=== PATIENT | male | born 1965 | race African-American/Black ===

== ENCOUNTER 2025-03-25 19:29 | Inpatient (IN) | payer OTHER ==
[~2025-03-25] VITALS: Ht 170.2 cm; Wt 38.6 kg
--- NOTE | 2025-03-25 19:43 | ED.PDOC ---
Altered Mental Status HPI Comments This is a 62 year old male presenting to the ED with chief complaint of ALOC/hypoglycemia. Patient reports that his blood sugar has been running high and low at home, not being able to keep track of it at all over the past few days. Patient appears to be altered and unable to answer many questions at this time. Patient's friend came in to report that the patient has been in and out of assisted living homes for some time, recently checking himself out of one yesterday. Friend relays that the patient has history of DM and ETOH abuse. Friend states she was going to drive patient to [place] where she lives to have patient get proper care and assistance where she can be near by, however, due to patient's sharp cognitive decline today. she brought the patient into the ED. Friend notes patient has been unable to care for himself for the past 2 years, but he has been able to test his own glucose up until today, which was a cause for alarm for her. Patient had drank orange juice with 4 packets of sugar in the ED along with getting an amp of dextrose prior to IV blowing. Patient is still unable to answer questions at this time. Time Seen by MD: 19:42 Reviewed Notes: Nurses Notes, Medications, Allergies Allergies: Coded Allergies: No Known Drug Allergy (Verified Allergy, Unknown, 03/25/25) Information Source: Patient Mode of Arrival: Wheelchair Severity: Severe Timing: Hours Duration: Since onset Prehospital treatment: None Quality: Decreased Alertness, Confusion Recent: None History of: Diabetes, Hypoglycemia Past Medical History PAST MEDICAL HISTORY: DM Surgical History: Unknown Family History Family History: Reviewed,noncontributory to illness Social History Smoker: Unknown Alcohol: Unknown Drugs: Unknown Lives In: Unknown Unable to Obtain due to: Altered Mental Status All Other Systems: Reviewed and Negative Physical Exam General Appearance: Other (Altered, frail) HEENT: Normal ENT Inspection, Pharynx Normal, TMs Normal Neck: Full Range of Motion, Non-Tender, Normal, Normal Inspection Respiratory: Chest Non-Tender, Lungs Clear, No Accessory Muscle Use, No Respiratory Distress, Normal Breath Sounds Cardiovascular: No Edema, No JVD, No Murmur, No Gallop, Normal Peripheral Pulses, Regular Rate/Rhythm Breast Exam: Deferred Gastrointestinal: No Organomegaly, Non Tender, No Pulsatile Mass, Normal Bowel Sounds, Soft Genitalia: Deferred Pelvic: Deferred Rectal: Deferred Extremities: No calf tenderness, Normal capillary refill, Normal inspection, Normal range of motion, Non-tender, No pedal edema Musculoskeletal : Apperance: Normal Neurologic: Other (Altered) Cerebellar Function: Normal Reflexes: Normal Skin: Dry, Normal Color, Warm Lymphatic: No Adenopathy Was a procedure done? Was a procedure done?: No Differential Diagnosis (ALOC) Differential Diagnosis: Dehydration, Hypoglycemia, DKA, Encephalopathy, Sepsis, Hypoxemia, Heart Failure, Renal Failure X-Ray, Labs, Meds, VS Vital Signs Date Time Temp Pulse Resp B/P (MAP) Pulse Ox O2 Delivery O2 Flow Rate FiO2 03/25/25 20:35 79 13 100 Room Air* 0 21 03/25/25 20:00 79 03/25/25 19:55 66 12 109/66 (80) 99 03/25/25 19:30 87.8 79 13 123/87 (99) 100 87.8 Lab Test 03/25/25 22:12 03/25/25 21:40 03/25/25 21:05 03/25/25 20:35 Range/Units Lactic Acid Level 3.5 *H 0.4-2.0 mmol/L Troponin I High Sensitivity 11 </=54 ng/L POC Glucose 153 H 152 H 70-106 mg/dl Test 03/25/25 20:31 03/25/25 20:29 03/25/25 19:42 03/25/25 19:39 Range/Units White Blood Count 12.1 H 4.4-10.8 10^3/uL Red Blood Count 4.07 L 4.5-5.90 10^6/uL Hemoglobin 12.6 L 13.5-17.5 g/dL Hematocrit 38.3 L 41.0-53.0 % Mean Corpuscular Volume 94.1 80.0-100.0 fL Mean Corpuscular Hemoglobin 30.9 28.0-32.0 pg Mean Corpuscular Hemoglobin Concent 32.8 32.0-36.0 g/dL Red Cell Distribution Width 13.0 11.8-14.3 % Platelet Count 170 140-450 10^3/uL Mean Platelet Volume 8.5 6.9-10.8 fL Neutrophils (%) (Auto) 82.4 H 37.0-80.0 % Lymphocytes (%) (Auto) 12.8 10.0-50.0 % Monocytes (%) (Auto) 4.4 0.0-12.0 % Eosinophils (%) (Auto) 0.0 0.0-7.0 % Basophils (%) (Auto) 0.4 0.0-2.0 % Neutrophils # (Auto) 9.9 H 1.6-8.6 10 ^3/uL Lymphocytes # (Auto) 1.5 0.4-5.4 10 ^3/uL Monocytes # (Auto) 0.5 0-1.3 10 ^3/uL Eosinophils # (Auto) 0 0-0.8 10 ^3/uL Basophils # (Auto) 0.1 0-0.2 10 ^3/uL Nucleated Red Blood Cells 0.0 % Sodium Level 142 136-145 mmol/L Potassium Level 3.2 L 3.5-5.1 mmol/L Chloride Level 104 98-107 mmol/L Carbon Dioxide Level 26 20-31 mmol/L Anion Gap 12 5-15 Blood Urea Nitrogen 10 9-23 mg/dL Creatinine 1.13 0.700-1.30 mg/dL Glomerular Filtration Rate Calc 74 >90 mL/min BUN/Creatinine Ratio 8.8 L 10.0-20.0 Serum Glucose 225 H 74-106 mg/dL Lactic Acid Level 3.6 *H 0.4-2.0 mmol/L Calcium Level 9.7 8.7-10.4 mg/dL Total Bilirubin 0.5 0.2-1.0 mg/dL Aspartate Amino Transferase (AST) 52 H <34 U/L Alanine Aminotransferase (ALT) 142 H 7-40 U/L Alkaline Phosphatase 224 H 46-116 U/L Troponin I High Sensitivity 12 </=54 ng/L Total Protein 6.5 5.7-8.2 g/dL Albumin 4.1 3.2-4.8 g/dL Urine Color Yellow Yellow Urine Clarity Clear Clear Urine pH 5.5 5.0-9.0 Urine Specific [place] 1.015 1.001-1.035 Urine Protein Trace H Negative Urine Ketones Negative Negative Urine Blood Trace H Negative /uL Urine Nitrite Negative Negative Urine Bilirubin Negative Negative Urine Urobilinogen Normal Negative mg/dL Urine Leukocyte Esterase 1+ Negative /uL Urine RBC 2 0 - 3 /hpf Urine Microscopic WBC 3 0-3 /HPF Urine Squamous Epithelial Cells Few <5 /hpf Urine Bacteria None seen None Seen /hpf Urine Glucose 3+ H Normal mg/dL Urine Opiates Screen Neg NEGATIVE Urine Fentanyl Screen Neg NEGATIVE Urine Barbiturates Screen Neg NEGATIVE Urine Phencyclidine Screen Neg NEGATIVE Urine Amphetamines Screen Neg NEGATIVE Urine Benzodiazepines Screen Neg NEGATIVE Urine Cocaine Screen Neg NEGATIVE Urine Cannabinoids Screen Pos NEGATIVE POC Glucose 18 *L 18 *L 70-106 mg/dl Current Medications Medications (Trade) Dose Ordered Sig/Paulette Route Start Time Stop Time Status Last Admin Sodium Chloride 1,000 ml @ 1,000 mls/hr Q1H ONCE IV 03/25/25 20:45 03/25/25 21:44 DC 03/25/25 20:42 Dextrose 50 ml ONCE ONCE IV 03/25/25 19:45 03/25/25 20:45 DC 03/25/25 19:45 Vancomycin HCl 200 ml @ 200 mls/hr ONCE ONCE IV 03/25/25 23:00 03/25/25 23:59 03/25/25 22:53 Ceftriaxone Sodium 50 ml @ 100 mls/hr ONCE ONCE IV 03/25/25 22:45 03/25/25 23:14 03/25/25 22:23 X-Ray, Labs, Meds, VS Comment PATIENT WILL BE ADMITTED FOR HYPOGLYCEMIC EVENT PATIENT HAS A ELEVATED LACTIC ACID PATIENT ALSO HAS HYPOKALEMIA CONCERNS OF UROSEPSIS, PATIENT IS STARTED ON VANCOMYCIN AND ROCEPHIN Time of 1ST Reevaluation: 20:41 Reevaluation 1ST: Unchanged Patient Education/Counseling: Diagnosis, Treatment Family Education/Counseling: No Family Present SEPSIS Sepsis Screen Physician Orders Chest Portable (03/25/25 20:33) Blood Glucose Q2h (03/25/25 20:33) Insert Costa Catheter QSHIFT (03/25/25 20:42) Bear Hugger For Temp <94.5f (03/25/25 20:42) Blood Culture (03/25/25 22:30) Vancomycin 1gm/200ml Pm (03/25/25 23:00) Ceftriaxone 1gm/50ml D5w (Rocephin) (03/25/25 22:45) Vital Signs Date Time Temp Pulse Resp B/P (MAP) Pulse Ox O2 Delivery O2 Flow Rate FiO2 03/25/25 20:35 79 13 100 Room Air* 0 21 03/25/25 20:00 79 03/25/25 19:55 66 12 109/66 (80) 99 03/25/25 19:30 87.8 79 13 123/87 (99) 100 87.8 Laboratory Tests Test 03/25/25 20:31 03/25/25 22:12 Lactic Acid Level 3.6 mmol/L (0.4-2.0) *H 3.5 mmol/L (0.4-2.0) *H White Blood Count 12.1 10^3/uL (4.4-10.8) H Medications Medications Dose Ordered Sig/Paulette Route Start Time Stop Time Status Last Admin Dose Admin Ceftriaxone Sodium 50 ml @ 100 mls/hr ONCE ONCE IV 03/25/25 22:45 03/25/25 23:14 03/25/25 22:23 Dextrose 50 ml ONCE ONCE IV 03/25/25 19:45 03/25/25 20:45 DC 03/25/25 19:45 Sodium Chloride 1,000 ml @ 1,000 mls/hr Q1H ONCE IV 03/25/25 20:45 03/25/25 21:44 DC 03/25/25 20:42 Vancomycin HCl 200 ml @ 200 mls/hr ONCE ONCE IV 03/25/25 23:00 03/25/25 23:59 03/25/25 22:53 Departure 1 Departure Time of Disposition: 23:18 Impression: Primary Impression: Urinary tract infection Qualified Codes: N30.00 - Acute cystitis without hematuria Additional Impressions: Elevated lactic acid level Hypoglycemic event due to diabetes Metabolic encephalopathy Disposition: ADMITTED INPATIENT Condition: Guarded Critical Care Note Critical Care Time?: Yes Stability Stability form required: No Heart Score Heart Score: Heart Score Response (Comments) Value History N/A 0 EKG N/A 0 Age N/A 0 Risk Factors N/A 0 Troponin N/A 0 Total 0 I personally scribed for DAVEY MARESP ([email or web address]) on 03/25/25 at 19:43. Electronically submitted by Kevin Ramirez ([email or web address]). I personally scribed for DAVEY MARESP ([email or web address]) on 03/25/25 at 20:05. Electronically submitted by Kevin Ramirez ([email or web address]). DAVEY MARESP Mar 25, 2025 19:43
[2025-03-25] MEDS: DEXTROSE 50% SYRINGE 50 ML IV ONE (19:44)
[2025-03-25] MEDS: DEXTROSE (50%) 50ML SYRG IV ONE (19:45)
[2025-03-25 20:35] VITALS: PULSE 79; RESP 13; O2SAT 100
[2025-03-25 20:38] LABS: Urine Bacteria None Seen /hpf (None Seen)
[2025-03-25] MEDS: SODIUM CHLORIDE 0.9% 1,000 ML IV ONE (20:42)
[2025-03-25 20:44] LABS: Urine Blood TRACE /uL (Negative); Urine Clarity Clear (Clear); Urine Color Yellow (Yellow); Urine Protein, UAD TRACE (Negative); Urine Specific Gravity 1.015 (1.001-1.035); Urine Squamous Epithelial Cell FEW /hpf (<5); Urine Urobilinogen Normal (Negative); Urine WBC 3 /HPF (0-3); Urine pH 5.5 (5.0-9.0)
[2025-03-25 21:01] LABS: Basophils # (auto) 0.1 10 ^3/uL (0-0.2); Basophils % (auto) 0.4 % (0.0-2.0); Eosinophils # (auto) 0 10 ^3/uL (0-0.8); Hematocrit 38.3 % (41.0-53.0); Hemoglobin 12.6 g/dL (13.5-17.5); Lymphocytes # (auto) 1.5 10 ^3/uL (0.4-5.4); Lymphocytes % (auto) 12.8 % (10.0-50.0); Mean Corpuscular Hemoglobin 30.9 pg (28.0-32.0); Mean Corpuscular Hgb Conc. 32.8 g/dL (32.0-36.0); Mean Corpuscular Volume 94.1 fL (80.0-100.0); Monocytes # (auto) 0.5 10 ^3/uL (0-1.3); Monocytes % (auto) 4.4 % (0.0-12.0); Neutrophils # (auto) 9.9 10 ^3/uL (1.6-8.6); Neutrophils % (auto) 82.4 % (37.0-80.0); Platelet Count (auto) 170 10^3/uL (140-450); Red Blood Cells 4.07 10^6/uL (4.5-5.90); White Blood Cell 12.1 10^3/uL (4.4-10.8)
[2025-03-25 21:10] LABS: Amphetamine Screen, Urine Neg (NEGATIVE)
[2025-03-25 21:19] LABS: Albumin 4.1 g/dL (3.2-4.8); Anion Gap 12 (5-15); BUN/Creatinine Ratio 8.8 (10.0-20.0); Bilirubin, Total 0.5 mg/dL (0.2-1.0); Blood Urea Nitrogen 10 mg/dL (9-23); Calcium 9.7 mg/dL (8.7-10.4); Carbon Dioxide 26 mmol/L (20-31); Chloride 104 mmol/L (98-107); Sodium 142 mmol/L (136-145); Total Protein 6.5 g/dL (5.7-8.2)
--- NOTE | 2025-03-25 21:20 | DVH ---
CHEST RADIOGRAPH Indication: cp Technique: Single frontal view of the chest was obtained Comparison: None FINDINGS: Lines and Tubes: AED pads over the left chest Lungs: No focal consolidation. Pleura: No effusion. No pneumothorax. If pneumoperitoneum is of clinical concern recommend CT abdomen and pelvis. Cardiomediastinal contours: Unremarkable Bones: No acute osseous abnormality. IMPRESSION: 1. No acute cardiopulmonary disease.
[2025-03-25 21:39] LABS: Barbiturate Scree,Urine Neg (NEGATIVE); Benzodiazephine Screen, Urine Neg (NEGATIVE); Cannabinoid Screen, Urine Pos (NEGATIVE); Cocaine Screen, Urine Neg (NEGATIVE); Opiate Scree,Urine Neg (NEGATIVE); Phencyclidine Screen, Urine Neg (NEGATIVE)
[2025-03-25 21:39] LABS: Alanine Aminotransferase 142 U/L (7-40); Alkaline Phosphatase 224 U/L (46-116); Aspartate Aminotransferase 52 U/L (<34); Glucose 225 mg/dL (74-106); Potassium 3.2 mmol/L (3.5-5.1)
[2025-03-25 21:47] LABS: Lactic Acid w/Reflex 3.6 mmol/L (0.4-2.0)
[2025-03-25] MEDS: cefTRIAXone 1GM/50ML D5W 50 ML IV ONE (22:23)
[2025-03-25] MEDS: VANCOMYCIN 1GM/200ML PM 200 ML IV ONE (22:53)
[2025-03-25] MEDS: D5W/SOD CHL 0.45%/KCL 40MEQ 1,000 ML IV ONE (23:30)
[2025-03-26] MEDS ORDERED: ONDANSETRON HCL 4 MG/2 ML VIAL IV PRN
[2025-03-26] MEDS ORDERED: ACETAMINOPHEN 325 MG TAB PO PRN
[2025-03-26] MEDS: InsuLIN REG 1unit/0.01ml Soln (100units/ml) SC SCH
[2025-03-26] MEDS ORDERED: D5W/SOD CHL 0.45% 1,000 ML IV ONE
[2025-03-26] MEDS ORDERED: DEXTROSE (50%) 50ML SYRG IV PRN
[2025-03-26] MEDS: ACCU-CHEK COMFORT CURVE STRIP VI SCH (00:08)
--- NOTE | 2025-03-26 00:45 | DVHHP2 ---
History of Present Illness Reason for Visit: Altered mental status History of Present Illness 62-year-old male presents for evaluation of altered mental status. Patient was noted to be progressively more confused by his friend. He was brought in for evaluation. Blood sugar on arrival was 18. Patient is currently alert oriented x3. No unilateral weakness, headache or blurred vision. No abdominal pain. Past Medical History Diabetes mellitus Past Surgical History None Family History Noncontributory Smoke: No ALCOHOL: none Drugs: None Review of Systems Review of Systems Review of systems are limited due to the patient's altered mental status. Allergies: Coded Allergies: No Known Drug Allergy (Verified Allergy, Unknown, 03/25/25) Medications Current Medications Medications Dose Ordered Sig/Paulette Route Start Time Stop Time Status Last Admin Dose Admin Ceftriaxone Sodium 50 ml @ 100 mls/hr DAILY@09 IV 03/27/25 09:00 Diagnostic Test (Pha) 1 strip IQ4HR 03/26/25 00:00 03/26/25 00:08 1 STRIP Insulin Human Regular IQ4HR SC 03/26/25 00:00 Dextrose 50 ml UD PRN IV 03/26/25 00:00 Ondansetron HCl 4 mg Q4HP PRN IV 03/26/25 00:00 Acetaminophen 650 mg Q6HP PRN PO 03/26/25 00:00 Exam Vital Signs Vital Signs Date Time Temp Pulse Resp B/P (MAP) Pulse Ox O2 Delivery O2 Flow Rate FiO2 03/25/25 23:00 94 11 99/67 (78) 100 03/25/25 22:00 91.6 91.6 03/25/25 20:35 Room Air* 0 21 Exam Gen: 62-year-old male in mild distress, cachectic Skin: Warm, dry, normal color and texture, no rash. HEENT: Normocephalic atraumatic, mucous membranes moist and pink. Neck: Cervical and supraclavicular nodes normal without enlargement, trachea is midline, thyroid gland is normal without masses. Pulmonary: Clear to auscultation and percussion bilaterally. Cardiac: Regular rate and rhythm. No murmur Abdomen: Soft, nontender, nondistended, bowel sounds present all 4 quadrants, no guarding, no rigidity, no organomegaly. Extremities: No cyanosis, clubbing, no edema Neuro: Cranial nerves II through XII grossly intact, normal affect and speech, no focal motor deficits. Labs/Xrays ORDERING PHYSICIAN: DAVEY MARES PROCEDURE(s): CXRP - CHEST PORTABLE REASON: cp ORDER NUMBER(s): [id number], ACCESSION NUMBER(s): [id number] CHEST RADIOGRAPH Indication: cp Technique: Single frontal view of the chest was obtained Comparison: None FINDINGS: Lines and Tubes: AED pads over the left chest Lungs: No focal consolidation. Pleura: No effusion. No pneumothorax. If pneumoperitoneum is of clinical concern recommend CT abdomen and pelvis. Cardiomediastinal contours: Unremarkable Bones: No acute osseous abnormality. IMPRESSION: 1. No acute cardiopulmonary disease. Labs Test 03/25/25 22:12 03/25/25 21:40 03/25/25 21:05 03/25/25 20:31 Range/Units Lactic Acid Level 3.5 *H 0.4-2.0 mmol/L Troponin I High Sensitivity 11 </=54 ng/L POC Glucose 153 H 70-106 mg/dl White Blood Count 12.1 H 4.4-10.8 10^3/uL Red Blood Count 4.07 L 4.5-5.90 10^6/uL Hemoglobin 12.6 L 13.5-17.5 g/dL Hematocrit 38.3 L 41.0-53.0 % Mean Corpuscular Volume 94.1 80.0-100.0 fL Mean Corpuscular Hemoglobin 30.9 28.0-32.0 pg Mean Corpuscular Hemoglobin Concent 32.8 32.0-36.0 g/dL Red Cell Distribution Width 13.0 11.8-14.3 % Platelet Count 170 140-450 10^3/uL Mean Platelet Volume 8.5 6.9-10.8 fL Neutrophils (%) (Auto) 82.4 H 37.0-80.0 % Lymphocytes (%) (Auto) 12.8 10.0-50.0 % Monocytes (%) (Auto) 4.4 0.0-12.0 % Eosinophils (%) (Auto) 0.0 0.0-7.0 % Basophils (%) (Auto) 0.4 0.0-2.0 % Neutrophils # (Auto) 9.9 H 1.6-8.6 10 ^3/uL Lymphocytes # (Auto) 1.5 0.4-5.4 10 ^3/uL Monocytes # (Auto) 0.5 0-1.3 10 ^3/uL Eosinophils # (Auto) 0 0-0.8 10 ^3/uL Basophils # (Auto) 0.1 0-0.2 10 ^3/uL Nucleated Red Blood Cells 0.0 % Sodium Level 142 136-145 mmol/L Potassium Level 3.2 L 3.5-5.1 mmol/L Chloride Level 104 98-107 mmol/L Carbon Dioxide Level 26 20-31 mmol/L Anion Gap 12 5-15 Blood Urea Nitrogen 10 9-23 mg/dL Creatinine 1.13 0.700-1.30 mg/dL Glomerular Filtration Rate Calc 74 >90 mL/min BUN/Creatinine Ratio 8.8 L 10.0-20.0 Serum Glucose 225 H 74-106 mg/dL Calcium Level 9.7 8.7-10.4 mg/dL Total Bilirubin 0.5 0.2-1.0 mg/dL Aspartate Amino Transferase (AST) 52 H <34 U/L Alanine Aminotransferase (ALT) 142 H 7-40 U/L Alkaline Phosphatase 224 H 46-116 U/L Total Protein 6.5 5.7-8.2 g/dL Albumin 4.1 3.2-4.8 g/dL Test 03/25/25 20:29 Range/Units Urine Color Yellow Yellow Urine Clarity Clear Clear Urine pH 5.5 5.0-9.0 Urine Specific [place] 1.015 1.001-1.035 Urine Protein Trace H Negative Urine Ketones Negative Negative Urine Blood Trace H Negative /uL Urine Nitrite Negative Negative Urine Bilirubin Negative Negative Urine Urobilinogen Normal Negative mg/dL Urine Leukocyte Esterase 1+ Negative /uL Urine RBC 2 0 - 3 /hpf Urine Microscopic WBC 3 0-3 /HPF Urine Squamous Epithelial Cells Few <5 /hpf Urine Bacteria None seen None Seen /hpf Urine Glucose 3+ H Normal mg/dL Urine Opiates Screen Neg NEGATIVE Urine Fentanyl Screen Neg NEGATIVE Urine Barbiturates Screen Neg NEGATIVE Urine Phencyclidine Screen Neg NEGATIVE Urine Amphetamines Screen Neg NEGATIVE Urine Benzodiazepines Screen Neg NEGATIVE Urine Cocaine Screen Neg NEGATIVE Urine Cannabinoids Screen Pos NEGATIVE Assessment/Plan Assessment/Plan Assessment Metabolic encephalopathy Hypoglycemia Urinary tract infection Early sepsis secondary to the above Failure to thrive Plan Admit the patient to Med surge to the hospitalist Maintenance IV fluids Rocephin Replete electrolytes Continue treatment per orders. Plan discussed with: Patient My Orders Orders - JILLIAN MICHELLE Procedure Category Date Status Time Urine Bacterial DOROTEO 03/25/25 In Process Culture 23:54 Basic Metabolic Panel LAB 03/26/25 Logged 04:00 Glucose Blood PHA 03/26/25 In Process (Accu-Chek Comfort 00:00 Insulin R (Human) PHA 03/26/25 In Process (Insulin R) 00:00 Dextrose 50% Syringe PHA 03/26/25 In Process 00:00 Admit ADMIT 03/25/25 Transmitted 23:54 Ondansetron Hcl PHA 03/26/25 In Process (Zofran) 00:00 Complete Blood Count LAB 03/26/25 Logged 04:00 Cardiac DIET 03/26/25 Transmitted Diet-2gna,Lofat,Lochol Breakfast Condition: Stable ALEJANDRA 03/25/25 In Process 23:54 Acetaminophen Tablet PHA 03/26/25 In Process (Tylenol Tablet) 00:00 Bedrest With Bathroom ALEJANDRA 03/25/25 In Process Privileg 23:54 Ceftriaxone 1gm/50ml PHA 03/27/25 In Process D5w (Rocephin) 09:00 Date of Service: Mar 25, 2025 Billing Provider: JILLIAN MICHELLE Common Visit Codes: [id number] INP/OBS CARE (HIGH) JILLIAN MICHELLE Mar 26, 2025 00:45
[2025-03-26 04:00] VITALS: BP 104/68; TEMP 97.7
[2025-03-26] MEDS: HALOPERIDOL LACTATE 5 MG/ML INJ VIAL ONE (05:42)
[2025-03-26] MEDS: LORazepam 2MG/ML-1ML VIAL ONE (05:43)
[2025-03-26] MEDS: diphenhdrAMINE HCL 50 MG/1 ML VL ONE (05:43)
[2025-03-26] MEDS: LORazepam 2MG/ML-1ML VIAL IM ONE (06:21)
[2025-03-26] MEDS: diphenhdrAMINE HCL 50 MG/1 ML VL IM ONE (06:21)
[2025-03-26] MEDS: HALOPERIDOL LACTATE 5 MG/ML INJ VIAL IM ONE (06:22)
[2025-03-26 08:30] VITALS: PULSE 68; RESP 14; O2SAT 100
[2025-03-26 17:00] VITALS: PULSE 64; RESP 12; O2SAT 100
[2025-03-26 18:42] LABS: Basophils # (auto) 0 10 ^3/uL (0-0.2); Basophils % (auto) 0.3 % (0.0-2.0); Eosinophils # (auto) 0 10 ^3/uL (0-0.8); Eosinophils % (auto) 0.1 % (0.0-7.0); Hematocrit 36.5 % (41.0-53.0); Hemoglobin 12.1 g/dL (13.5-17.5); Mean Corpuscular Hemoglobin 31.3 pg (28.0-32.0); Mean Corpuscular Volume 94.7 fL (80.0-100.0); Monocytes # (auto) 0.5 10 ^3/uL (0-1.3); Monocytes % (auto) 4.2 % (0.0-12.0); Neutrophils # (auto) 9.2 10 ^3/uL (1.6-8.6); Neutrophils % (auto) 86.4 % (37.0-80.0); Nucleated Red Blood Cells % 0.1 %; Platelet Count (auto) 141 10^3/uL (140-450); Red Blood Cells 3.85 10^6/uL (4.5-5.90); Red Cell Distribution Width 12.8 % (11.8-14.3); White Blood Cell 10.6 10^3/uL (4.4-10.8)
[2025-03-26 18:49] LABS: Potassium 4.7 mmol/L (3.5-5.1); Sodium 141 mmol/L (136-145)
[2025-03-26 18:50] LABS: Anion Gap 9 (5-15); Carbon Dioxide 25 mmol/L (20-31)
[2025-03-26 18:51] LABS: Calcium 9.3 mg/dL (8.7-10.4)
[2025-03-26 18:55] LABS: BUN/Creatinine Ratio 12.7 (10.0-20.0); Blood Urea Nitrogen 13 mg/dL (9-23)
[2025-03-26 18:57] LABS: Chloride 107 mmol/L (98-107); Glucose 263 mg/dL (74-106)
[2025-03-27] MEDS ORDERED: AMLO1TAB23 PO (07:11)
[2025-03-27] MEDS ORDERED: PANC1CAP53 PO (07:11)
[2025-03-27] MEDS ORDERED: cefTRIAXone 1GM/50ML D5W 50 ML IV SCH (09:00)
== END 2025-03-26 20:30 | disposition left against medical advice (07) | DRG 720 ==
LOC: ER 19:35 → OVERFLOW 23:54 → EDBD 23:54 → OVERFLOW 03-26 20:00
PROVIDERS: ADMIT Internal Medicine; ATTEND Internal Medicine
DX: A41.9 Sepsis, unspecified organism (principal); G93.41 Metabolic encephalopathy; E11.649 Type 2 diabetes mellitus with hypoglycemia without coma; R62.7 Adult failure to thrive; N39.0 Urinary tract infection, site not specified; Z53.29 Procedure and treatment not carried out because of patient's decision for other reasons; Z68.1 Body mass index [BMI] 19.9 or less, adult
CPT/HCPCS: 36415; 71045; 80048; 80053; 80307; 81001; 82962; 83605; 84484; 85025; 87040; 87086; 87088; 87186; 96361; 96365; 96375; G0378

== ENCOUNTER 2025-03-26 23:56 | Inpatient (IN) | payer OTHER ==
[~2025-03-26] VITALS: Ht 172.7 cm; Wt 46.3 kg
[2025-03-27 02:09] LABS: Basophils # (auto) 0 10 ^3/uL (0-0.2); Basophils % (auto) 0.1 % (0.0-2.0); Eosinophils # (auto) 0 10 ^3/uL (0-0.8); Eosinophils % (auto) 0.2 % (0.0-7.0); Hematocrit 34.6 % (41.0-53.0); Hemoglobin 11.5 g/dL (13.5-17.5); Lymphocytes # (auto) 0.8 10 ^3/uL (0.4-5.4); Lymphocytes % (auto) 8.3 % (10.0-50.0); Mean Corpuscular Hemoglobin 31.4 pg (28.0-32.0); Mean Corpuscular Hgb Conc. 33.2 g/dL (32.0-36.0); Mean Corpuscular Volume 94.5 fL (80.0-100.0); Monocytes # (auto) 0.4 10 ^3/uL (0-1.3); Monocytes % (auto) 3.6 % (0.0-12.0); Neutrophils # (auto) 8.8 10 ^3/uL (1.6-8.6); Neutrophils % (auto) 87.8 % (37.0-80.0); Platelet Count (auto) 133 10^3/uL (140-450); Red Blood Cells 3.66 10^6/uL (4.5-5.90); Red Cell Distribution Width 13.4 % (11.8-14.3)
[2025-03-27 02:17] LABS: Chloride 103 mmol/L (98-107); Potassium 3.7 mmol/L (3.5-5.1); Sodium 138 mmol/L (136-145)
[2025-03-27 02:18] LABS: Anion Gap 11 (5-15); Carbon Dioxide 24 mmol/L (20-31)
[2025-03-27 02:23] LABS: BUN/Creatinine Ratio 10.8 (10.0-20.0); Blood Urea Nitrogen 13 mg/dL (9-23)
[2025-03-27 02:26] LABS: Glucose 475 mg/dL (74-106)
--- NOTE | 2025-03-27 02:55 | ED.PDOC ---
History of Present Illness HPI Comments 59 y/o M returns to the ED for c/c diarrhea. Patient reports on still having same diarrhea that has been ongoing for several months. No abdominal pain, urinary symptoms, nausea, vomiting, or further associated symptoms reported. Chief Complaint: Diarrhea Time Seen by MD: 01:30 Reviewed Notes: Nurses Notes, Medications, Allergies Allergies: Coded Allergies: No Known Drug Allergy (Verified Allergy, Unknown, 03/25/25) Home Meds Active Scripts Naproxen (NAPROSYN TABLET) 500 Mg Tb, 1 TAB PO BID for 10 Days, #20 TAB 1 Refill Prov:ISAMAR CARRION DO 03/30/25 Azithromycin (Azithromycin) 250 Mg Tab, 250 MG PO DAILY MDD 500 for 5 Days, #6 TAB 0 Refills 2 TABLETS ORALLY ON DAY ONE, THEN 1 TABLET ORALLY DAILY FOR 4 DAYS Prov:ISAMAR CARRION DO 03/30/25 Reported Medications Amlodipine Besylate (Amlodipine Besylate) 10 Mg Tab, 1 TAB PO DAILY 03/27/25 Pancrelipase (Lipase-Protease- (Creon) 6,000 Unit Cap, PO 03/27/25 Information Source: Patient Mode of Arrival: Ambulatory Severity: Moderate Timing: Hours Duration: Since onset Prehospital treatment: None Past Medical History PAST MEDICAL HISTORY: DM Surgical History: Unknown Family History Family History: Reviewed,noncontributory to illness Social History Smoker: Unknown Alcohol: Unknown Drugs: Unknown Lives In: Unknown All Other Systems: Reviewed and Negative (Comprehensive systems review obtained and negative except for what is stated in the HPI.) Physical Exam General Appearance: No Apparent Distress, Normal HEENT: Normal ENT Inspection, Pharynx Normal, TMs Normal Neck: Full Range of Motion, Non-Tender, Normal, Normal Inspection Respiratory: Chest Non-Tender, Lungs Clear, No Accessory Muscle Use, No Respiratory Distress, Normal Breath Sounds Cardiovascular: No Edema, No JVD, No Murmur, No Gallop, Normal Peripheral Pulses, Regular Rate/Rhythm Breast Exam: Deferred Gastrointestinal: No Organomegaly, Non Tender, No Pulsatile Mass, Normal Bowel Sounds, Soft Genitalia: Deferred Pelvic: Deferred Rectal: Deferred Extremities: No calf tenderness, Normal capillary refill, Normal inspection, Normal range of motion, Non-tender, No pedal edema Musculoskeletal : Apperance: Normal Neurologic: Alert, stock saw operator II-XII nml as Tested, No Motor Deficits, Normal Affect, Normal Mood, No Sensory Deficits Cerebellar Function: Normal Reflexes: Normal Skin: Dry, Normal Color, Warm Lymphatic: No Adenopathy Was a procedure done? Was a procedure done?: No Differential Dx Considerations may include: viral syndrome, dehydration, electrolyte imbalance, among others X-Ray, Labs, Meds, VS Vital Signs Date Time Temp Pulse Resp B/P (MAP) Pulse Ox O2 Delivery O2 Flow Rate FiO2 03/27/25 05:44 84 20 96 Room Air* 0 21 03/27/25 00:42 97.4 76 18 153/88 (109) 99 97.4 Lab Test 03/27/25 05:56 03/27/25 01:45 03/27/25 00:36 Range/Units POC Glucose 587 *H 430 *H 70-106 mg/dl White Blood Count 10.0 4.4-10.8 10^3/uL Red Blood Count 3.66 L 4.5-5.90 10^6/uL Hemoglobin 11.5 L 13.5-17.5 g/dL Hematocrit 34.6 L 41.0-53.0 % Mean Corpuscular Volume 94.5 80.0-100.0 fL Mean Corpuscular Hemoglobin 31.4 28.0-32.0 pg Mean Corpuscular Hemoglobin Concent 33.2 32.0-36.0 g/dL Red Cell Distribution Width 13.4 11.8-14.3 % Platelet Count 133 L 140-450 10^3/uL Mean Platelet Volume 8.9 6.9-10.8 fL Neutrophils (%) (Auto) 87.8 H 37.0-80.0 % Lymphocytes (%) (Auto) 8.3 L 10.0-50.0 % Monocytes (%) (Auto) 3.6 0.0-12.0 % Eosinophils (%) (Auto) 0.2 0.0-7.0 % Basophils (%) (Auto) 0.1 0.0-2.0 % Neutrophils # (Auto) 8.8 H 1.6-8.6 10 ^3/uL Lymphocytes # (Auto) 0.8 0.4-5.4 10 ^3/uL Monocytes # (Auto) 0.4 0-1.3 10 ^3/uL Eosinophils # (Auto) 0 0-0.8 10 ^3/uL Basophils # (Auto) 0 0-0.2 10 ^3/uL Nucleated Red Blood Cells 0.0 % Sodium Level 138 136-145 mmol/L Potassium Level 3.7 3.5-5.1 mmol/L Chloride Level 103 98-107 mmol/L Carbon Dioxide Level 24 20-31 mmol/L Anion Gap 11 5-15 Blood Urea Nitrogen 13 9-23 mg/dL Creatinine 1.20 0.700-1.30 mg/dL Glomerular Filtration Rate Calc 70 >90 mL/min BUN/Creatinine Ratio 10.8 10.0-20.0 Serum Glucose 475 #*H 74-106 mg/dL Hemoglobin A1c 8.0 H <5.7 % A1C Calcium Level 9.0 8.7-10.4 mg/dL Time of 1ST Reevaluation: 02:00 Reevaluation 1ST: Unchanged Patient Education/Counseling: Other (need for admission ) Family Education/Counseling: No Family Present SEPSIS Sepsis Screen Date sepsis recognized/suspect: Mar 27, 2025 Time Sepsis recognized/suspect: 003 Recent Procedure: No On Antibiotic Therapy: No Respiratory Rate >20: No Heart Rate >90: No Temp<36 C (96.8 F) or >38.3 C: No SBP <90 or MAP <65 mmHG: No New Acute Mental Status Change: No Is the patient on CPAP, BIPAP,: No Vital Signs Date Time Temp Pulse Resp B/P (MAP) Pulse Ox O2 Delivery O2 Flow Rate FiO2 03/27/25 05:44 84 20 96 Room Air* 0 21 03/27/25 00:42 97.4 76 18 153/88 (109) 99 97.4 Laboratory Tests Test 03/27/25 01:45 White Blood Count 10.0 10^3/uL (4.4-10.8) Departure 1 Departure Time of Disposition: 09:07 (Patient with severe dehydration and electrolyte abnormalities. We will admit patient for further workup) Impression: Primary Impression: Electrolyte abnormality Additional Impressions: Acute dehydration Generalized weakness Uncontrolled diabetes mellitus Qualified Codes: E11.65 - Type 2 diabetes mellitus with hyperglycemia Disposition: ADMITTED INPATIENT Admit to: Med Surg Condition: Serious e-Prescriptions Naproxen (NAPROSYN TABLET) 500 Mg Tb 1 TAB PO BID for 10 Days, #20 TAB 1 Refill Prov: ISAMAR CARRION DO 03/30/25 Azithromycin (Azithromycin) 250 Mg Tab 250 MG PO DAILY MDD 500 for 5 Days, #6 TAB 0 Refills 2 TABLETS ORALLY ON DAY ONE, THEN 1 TABLET ORALLY DAILY FOR 4 DAYS Prov: ISAMAR CARRION DO 03/30/25 Critical Care Note Critical Care Time?: No Stability Stability form required: No Heart Score Heart Score: Heart Score Response (Comments) Value History N/A 0 EKG N/A 0 Age N/A 0 Risk Factors N/A 0 Troponin N/A 0 Total 0 I personally scribed for AMMY JIMENEZ MD ([email or web address]) on 03/27/25 at 02:55. Electronically submitted by Orion Silva ([email or web address]). AMMY JIMENEZ MD Mar 27, 2025 02:55
[2025-03-27] MEDS: ONDANSETRON HCL 4 MG/2 ML VIAL IV ONE (05:27)
[2025-03-27] MEDS: SODIUM CHLORIDE 0.9% 1,000 ML IV ONE (05:27)
[2025-03-27 05:44] VITALS: PULSE 84; RESP 20; O2SAT 96
[2025-03-27] MEDS: InsuLIN REG 1unit/0.01ml Soln (100units/ml) IV ONE (05:58)
[2025-03-27] MEDS ORDERED: AMLO1TAB23 PO (07:11)
[2025-03-27] MEDS ORDERED: PANC1CAP53 PO (07:11)
[2025-03-27] MEDS ORDERED: DEXTROSE (50%) 50ML SYRG IV PRN (07:15)
[2025-03-27] MEDS ORDERED: ONDANSETRON HCL 4 MG/2 ML VIAL IV PRN (07:15)
--- NOTE | 2025-03-27 08:25 | DVH ---
CT abdomen and pelvis without contrast INDICATION: diarrhea for months TECHNIQUE: Serial axial images were performed through the abdomen and pelvis and then reformatted in the sagittal and coronal plane. All CT scans at this medical facility are performed using dose modula tion techniques as appropriate to a performed exam including the following: Automated exposure contro l was utilized; adjustment of the MA and/or KvP according to patient size; and use of iterative recon struction technique. FINDINGS: Patchy infiltrates in the left lung base. 6 mm thin walled cavity in the left lower lobe. Liver and spleen are normal in size without focal mass. No renal masses, stones or hydronephrosis. Calcifications throughout the pancreas. No biliary dilatation. No gallstones. No distention of bowel loops to suggest mechanical obstruction of bowel. There is a significant amoun t of stool present within the colon. No free fluid. Within the pelvis, bladder is smooth walled without stones. No abnormal masses or fluid collections. IMPRESSION: 1. Study is severely limited by lack of IV and oral contrast and patient's body habitus. GI pathology can not be excluded 2. Signs of chronic pancreatitis 3. Left lower lobe infiltrate. There is also a small cavitary lesion in the left lower lung zone newman sing question of granulomatous disease Computed Tomographic Radiation Dosimetry Report: Total CTDI vol = 5.07mGy Total DLP = 282.52mGy-cm Lo w dose protocols were performed.
--- NOTE | 2025-03-27 09:21 | DVHHP2 ---
History of Present Illness Reason for Visit: Diarrhea History of Present Illness Wolfgang Grey is a 59-year-old male with past medical history of diabetes and appendectomy who presents to the ED with fecal incontinence for 3 months. Patient endorses that his stool is brown or yellow sometimes liquid to solids. He states that he is very gassy. Patient also states that he takes Creon but does not know what it is for. He reports that he is currently homeless as he was in a recuperative care but lost his bed. Patient denies any chest pain, shortness of breath, fever, chills, light headedness, weakness, dizziness, abdominal pain, nausea, vomiting, recent trauma or injury, recent sick contacts, recent ingestion of spoiled food, or recent travels. Endocrine: Diabetes Past Surgical History: Appendectomy Family History: DM, Hypertension, Other (Dad with hypertension and diabetes) Smoke: <1 pack per day ALCOHOL: none Drugs: None Lives: Homeless Domestic Violence: Neg Review of Systems Gastrointestinal: Diarrhea Allergies: Coded Allergies: No Known Drug Allergy (Verified Allergy, Unknown, 03/25/25) Medications Current Medications Medications Dose Ordered Sig/Paulette Route Start Time Stop Time Status Last Admin Dose Admin Ondansetron HCl 4 mg Q4HP PRN IV 03/27/25 07:15 UNV Acetaminophen 650 mg Q6HP PRN PO 03/27/25 07:15 UNV Diagnostic Test (Pha) 1 strip ACHS 03/27/25 11:30 UNV Insulin Human Regular ACHS SC 03/27/25 11:30 UNV Dextrose 50 ml UD PRN IV 03/27/25 07:15 UNV Exam Vital Signs Vital Signs Date Time Temp Pulse Resp B/P (MAP) Pulse Ox O2 Delivery O2 Flow Rate FiO2 03/27/25 05:44 84 20 96 Room Air* 0 21 03/27/25 00:42 97.4 153/88 (109) 97.4 General Appearance: Alert, Oriented X3, Cooperative, No acute distress HEENT: Atraumatic, PERRLA, EOMI, Mucous membr. moist/pink Respiratory: Normal air movement Cardiovascular: Normal S1, Normal S2 Abdominal: Normal bowel sounds, Soft Extremities: Normal pulses Neuro: Normal gait, Normal speech, Strength at 5/5 X4 ext, Normal tone, Sensation intact Psych/Mental Status: Mental status NL, Mood NL Labs/Xrays Labs Test 03/27/25 05:56 03/27/25 01:45 Range/Units POC Glucose 587 *H 70-106 mg/dl White Blood Count 10.0 4.4-10.8 10^3/uL Red Blood Count 3.66 L 4.5-5.90 10^6/uL Hemoglobin 11.5 L 13.5-17.5 g/dL Hematocrit 34.6 L 41.0-53.0 % Mean Corpuscular Volume 94.5 80.0-100.0 fL Mean Corpuscular Hemoglobin 31.4 28.0-32.0 pg Mean Corpuscular Hemoglobin Concent 33.2 32.0-36.0 g/dL Red Cell Distribution Width 13.4 11.8-14.3 % Platelet Count 133 L 140-450 10^3/uL Mean Platelet Volume 8.9 6.9-10.8 fL Neutrophils (%) (Auto) 87.8 H 37.0-80.0 % Lymphocytes (%) (Auto) 8.3 L 10.0-50.0 % Monocytes (%) (Auto) 3.6 0.0-12.0 % Eosinophils (%) (Auto) 0.2 0.0-7.0 % Basophils (%) (Auto) 0.1 0.0-2.0 % Neutrophils # (Auto) 8.8 H 1.6-8.6 10 ^3/uL Lymphocytes # (Auto) 0.8 0.4-5.4 10 ^3/uL Monocytes # (Auto) 0.4 0-1.3 10 ^3/uL Eosinophils # (Auto) 0 0-0.8 10 ^3/uL Basophils # (Auto) 0 0-0.2 10 ^3/uL Nucleated Red Blood Cells 0.0 % Sodium Level 138 136-145 mmol/L Potassium Level 3.7 3.5-5.1 mmol/L Chloride Level 103 98-107 mmol/L Carbon Dioxide Level 24 20-31 mmol/L Anion Gap 11 5-15 Blood Urea Nitrogen 13 9-23 mg/dL Creatinine 1.20 0.700-1.30 mg/dL Glomerular Filtration Rate Calc 70 >90 mL/min BUN/Creatinine Ratio 10.8 10.0-20.0 Serum Glucose 475 #*H 74-106 mg/dL Calcium Level 9.0 8.7-10.4 mg/dL CT abdomen and pelvis without contrast INDICATION: diarrhea for months TECHNIQUE: Serial axial images were performed through the abdomen and pelvis and then reformatted in the sagittal and coronal plane. All CT scans at this medical facility are performed using dose modulation techniques as appropriate to a performed exam including the following: Automated exposure control was utilized; adjustment of the MA and/or KvP according to patient size; and use of iterative reconstruction technique. FINDINGS: Patchy infiltrates in the left lung base. 6 mm thin walled cavity in the left lower lobe. Liver and spleen are normal in size without focal mass. No renal masses, stones or hydronephrosis. Calcifications throughout the pancreas. No biliary dilatation. No gallstones. No distention of bowel loops to suggest mechanical obstruction of bowel. There is a significant amount of stool present within the colon. No free fluid. Within the pelvis, bladder is smooth walled without stones. No abnormal masses or fluid collections. IMPRESSION: 1. Study is severely limited by lack of IV and oral contrast and patient's body habitus. GI pathology can not be excluded 2. Signs of chronic pancreatitis 3. Left lower lobe infiltrate. There is also a small cavitary lesion in the left lower lung zone raising question of granulomatous disease Assessment/Plan Assessment/Plan Assessment Intractable diarrhea Left lower lobe cavitary lesion Left lower lobe infiltrate possibly pneumonia Anemia Thrombocytopenia History of diabetes ? Chronic pancreatitis Plan Admit to med surge Antiemetics CT abdomen and pelvis Cdiff stool Hemoglobin A1c ISS and Accu-Cheks CT chest QuantiFERON Isolation HIV Sputum culture Coccidio antibody Aspergillus antibody Diet Home medications reconciled DVT prophylaxis-SCDs PUD prophylaxis-not indicated no history of GERD or GI bleed Discussed plan of care with patient and nurse Pulmonary consult Social work-homeless Plan discussed with: Patient My Orders Orders - LUIS MTZ [employer] Procedure Category Date Status Time Admit ADMIT 03/27/25 Transmitted 07:08 Allergies ALEJANDRA 03/27/25 In Process 07:08 Code Status CODE 03/27/25 Transmitted 07:08 Ondansetron Hcl PHA 03/27/25 Logged (Zofran) 07:15 Complete Blood Count LAB 03/28/25 Verified 04:00 Comprehensive LAB 03/28/25 Verified Metabolic Panel 04:00 Cardiac DIET 03/27/25 Transmitted Diet-2gna,Lofat,Lochol Breakfast Acetaminophen Tablet PHA 03/27/25 Logged (Tylenol Tablet) 07:15 Sequential ALEJANDRA 03/27/25 In Process Compression Device Glucose Blood PHA 03/27/25 Logged (Accu-Chek Comfort 11:30 Insulin R (Human) PHA 03/27/25 Logged (Insulin R) 11:30 Dextrose 50% Syringe PHA 03/27/25 Logged 07:15 Hemoglobin A1c LAB 03/27/25 Logged 07:08 Clostridium Difficile DOROTEO 03/27/25 Logged Toxin 07:08 Ct Ab Pel Wo Con-No CT 03/27/25 Logged Oral Or Iv 07:08 Date of Service: Mar 27, 2025 Billing Provider: LUIS MTZ Common Visit Codes: [id number] INP/OBS CARE (HIGH) LUIS MTZ Mar 27, 2025 09:21
--- NOTE | 2025-03-27 10:31 | DVH ---
Procedure: CT CHEST WITHOUT CONTRAST Reason for study/Clinical History: cavitary lesion Comparison Study: None Exam Date: 03/27/2025 08:52 AM TECHNIQUE: Multidetector CT of the chest was performed from the lung apices to the upper abdomen with out the use of intravenous contract. Axial, coronal and sagittal multiplanar reformats were performed . Radiation Dose Information: CT Dose: CTDI volume is 4.67 mGy. Dose-length product is 182.25 mGy*cm The dose indicators for CT are the volume Computed Tomography (CT) Dose Index (CTDIvol) and the Dose Length Product (DLP), and are measured in units of mGy and mGy-cm, respectively. These indicators are not patient dose, but values generated from the CT scanner acquisition factors. The report includes radiation exposure data for exposures received during this examination. FINDINGS: On lung windows there is pulmonary hyperexpansion. Thin-walled cavitary lesion in the left upper lobe measures 5.4 by 3.7 cm. Right lung clear Heart size normal. No pericardial effusions Spotty calcifications in the coronary arteries. Limited views of the upper abdomen show pancreatic calcification probably to chronic pancreatitis 1. Thin walled cavitary lesion left upper lobe 5.4 x 3.7 cm. Question due to granulomatous disease. 2. Pulmonary hyperexpansion suggesting COPD or reactive airways disease. Radiation optimization: All CT scans at this facility use at least one of these dose optimization justina hniques: automated exposure control mA and/or kV adjustment per patient size (includes targeted exam s where dose is matched to clinical indication) or iterative reconstruction.
[2025-03-27] MEDS: amLODIPine BESYLATE 5 MG TAB PO SCH (11:03)
[2025-03-27] MEDS: cefTRIAXone 1GM/50ML D5W 50 ML IV SCH (11:06)
[2025-03-27] MEDS: AZITHROMYCIN 500MG/ 250ML 250 ML IV SCH (11:39)
[2025-03-27] MEDS: ACCU-CHEK COMFORT CURVE STRIP VI SCH (11:39)
[2025-03-27] MEDS: InsuLIN REG 1unit/0.01ml Soln (100units/ml) SC SCH (11:47)
--- NOTE | 2025-03-27 15:52 | DVHINCON2 ---
Date of service: Mar 27, 2025 Referring Physician Alisa Villela Np Reason for Consultation Abnormal imaging History of Present Illness History Source: Patient Exam Limitations: No limitations HPI Patient is a 59-year old gentleman with a history of nicotine dependency and diabetes who presented with diarrhea. Was seen in the emergency room where he was found to be hyperglycemic and was admitted for further workup. CT of the chest was obtained revealing left upper lobe cavitary lesion and pulmonology was consulted to assist in management. Home Meds Reported Medications Amlodipine Besylate (Amlodipine Besylate) 10 Mg Tab, 1 TAB PO DAILY 03/27/25 Pancrelipase (Lipase-Protease- (Creon) 6,000 Unit Cap, PO 03/27/25 Past Medical History Cardiac: No pertinent Hx Pulmonary: No pertinent Hx Central Nervous System: No pertinent Hx GI: No pertinent Hx Hemotology/Oncology: No pertinent Hx Hepatobiliary: No pertinent Hx Psychiatric: No pertinent Hx Musculoskeletal: No pertinent Hx Rheumotologic: No pertinent Hx Infectious Disease: No peritnent Hx ENT: No pertinent Hx Renal/: No pertinent Hx Endocrine: NIDDM Dermatology: No pertinent Hx Past Surgical History: Appendectomy Family History: No pertinent Hx Smoker: Positive Alocohol: None Drugs: None Lives with: Homeless Domestic Violence: Neg Review of Systems Constitutional: No symptom reported Ears, Nose, & Throat: No symptom reported Eyes: No symptom reported Pulmonary/Respiratory: No symptom reported Cardiovascular: No symptom reported Gastrointestinal: Diarrhea Genitourinary: No symptom reported Musculoskeletal: No symptom reported Skin: No symptom reported Psychiatric: No symptom reported Endocrine: No symptom reported Hemotologic/Lymphatic: No symptom reported H&P Exam Vital Signs Vital Signs Date Time Temp Pulse Resp B/P (MAP) Pulse Ox O2 Delivery O2 Flow Rate FiO2 03/27/25 15:00 53 14 133/61 (85) 98 03/27/25 14:00 97.9 97.9 03/27/25 05:44 Room Air* 0 21 General Appeara: Well developed, Well nourished, Normal Appearance Head Exam: Normal inspection Neck Exam: Normal inspection, Non-tender, Normal alignment Eye Exam: bilateral eye Normal inspection, bilateral eye PERRL, bilateral eye EOMI Ear Exam: bilateral ear Auricle normal, bilateral ear Canal normal, bilateral ear TM normal Nasal Exam: Normal inspection Mouth: Normal Inspection Pulmonary/Respiratory: Normal inspection, Normal breath sounds, Chest non- tender, Lungs clear Cardiovascular/Chest: Normal inspection, Regular rate, Normal Rhythm Peripheral Pulses: 4+ Radial (R), 4+ Radial (L), 4+ Brachial (R), 4+ Brachial (L) Abdominal Exam: Normal bowel sounds Labs/Xrays Labs Test 03/27/25 11:36 03/27/25 10:57 03/27/25 01:45 Range/Units POC Glucose 335 H 70-106 mg/dl HIV (1&2) Antibody Negative Negative White Blood Count 10.0 4.4-10.8 10^3/uL Red Blood Count 3.66 L 4.5-5.90 10^6/uL Hemoglobin 11.5 L 13.5-17.5 g/dL Hematocrit 34.6 L 41.0-53.0 % Mean Corpuscular Volume 94.5 80.0-100.0 fL Mean Corpuscular Hemoglobin 31.4 28.0-32.0 pg Mean Corpuscular Hemoglobin Concent 33.2 32.0-36.0 g/dL Red Cell Distribution Width 13.4 11.8-14.3 % Platelet Count 133 L 140-450 10^3/uL Mean Platelet Volume 8.9 6.9-10.8 fL Neutrophils (%) (Auto) 87.8 H 37.0-80.0 % Lymphocytes (%) (Auto) 8.3 L 10.0-50.0 % Monocytes (%) (Auto) 3.6 0.0-12.0 % Eosinophils (%) (Auto) 0.2 0.0-7.0 % Basophils (%) (Auto) 0.1 0.0-2.0 % Neutrophils # (Auto) 8.8 H 1.6-8.6 10 ^3/uL Lymphocytes # (Auto) 0.8 0.4-5.4 10 ^3/uL Monocytes # (Auto) 0.4 0-1.3 10 ^3/uL Eosinophils # (Auto) 0 0-0.8 10 ^3/uL Basophils # (Auto) 0 0-0.2 10 ^3/uL Nucleated Red Blood Cells 0.0 % Sodium Level 138 136-145 mmol/L Potassium Level 3.7 3.5-5.1 mmol/L Chloride Level 103 98-107 mmol/L Carbon Dioxide Level 24 20-31 mmol/L Anion Gap 11 5-15 Blood Urea Nitrogen 13 9-23 mg/dL Creatinine 1.20 0.700-1.30 mg/dL Glomerular Filtration Rate Calc 70 >90 mL/min BUN/Creatinine Ratio 10.8 10.0-20.0 Serum Glucose 475 #*H 74-106 mg/dL Hemoglobin A1c 8.0 H <5.7 % A1C Calcium Level 9.0 8.7-10.4 mg/dL Assessment/Plan Plan Impression Left upper lobe cavitary lesion Hyperglycemia Atelectasis Smoker Patient seen and examined Events Low oxygen requirements On room air Appears cachetic Labs and imaging reviewed CT of the chest shows thin walled cavitary lesion left upper lobe 5.4 x 3.7 cm HIV negative Management Supplemental oxygen as needed Titrate to maintain sats 90% or above Incentive spirometry Antibiotics Bronchodilators Monitor renal function Monitor electrolytes Supplement as needed AFB x3 DVT prophylaxis Plan discussed with: Patient JT LANDIN MD Mar 27, 2025 15:52
[2025-03-27 21:10] VITALS: PULSE 60; RESP 11; O2SAT 100
[2025-03-27 21:32] VITALS: BP 162/87; PULSE 68; RESP 17; O2SAT 95
[2025-03-28 04:09] VITALS: BP 162/87; PULSE 68; RESP 17; O2SAT 95
[2025-03-28 05:00] VITALS: BP 116/89; PULSE 62; RESP 17; TEMP 99.1; O2SAT 98
[2025-03-28 09:00] VITALS: BP 144/83; PULSE 63; RESP 16; TEMP 97.5; O2SAT 100
--- NOTE | 2025-03-28 14:20 | DVHPN2 ---
Progress Note - Dictate Date Seen: Mar 28, 2025 Medical Necessity Reason Pt with a Central, PICC or Fol: No vital signs Vital Sign Date Time Temp Pulse Resp B/P (MAP) Pulse Ox O2 Delivery O2 Flow Rate FiO2 03/28/25 09:00 97.5 63 16 144/83 (103) 100 97.5 03/28/25 04:09 Room Air* 0 21 Total Intake and Output 03/27/25 03/27/25 03/28/25 15:00 23:00 07:00 Intake Total 250 ml 0 ml Balance 250 ml 0 ml medications Current Medications Medications Dose Ordered Sig/Paulette Route Start Time Stop Time Status Last Admin Dose Admin Ondansetron HCl 4 mg Q4HP PRN IV 03/27/25 07:15 Acetaminophen 650 mg Q6HP PRN PO 03/27/25 07:15 Diagnostic Test (Pha) 1 strip ACHS 03/27/25 11:30 03/28/25 11:06 1 STRIP Insulin Human Regular ACHS SC 03/27/25 11:30 03/27/25 11:47 8 UNITS Dextrose 50 ml UD PRN IV 03/27/25 07:15 Amlodipine Besylate 10 mg DAILY PO 03/27/25 10:00 03/27/25 11:03 10 MG Ceftriaxone Sodium 50 ml @ 100 mls/hr DAILY@09 IV 03/27/25 10:30 03/27/25 11:06 100 MLS/HR Azithromycin 250 ml @ 125 mls/hr DAILY IV 03/27/25 10:30 03/27/25 11:39 125 MLS/HR laboratory and microbiology Laboratory Tests 03/27/25 01:45 Test 03/27/25 01:45 Range/Units Serum Glucose 475 #*H 74-106 mg/dL Assessment/Plan Impression Left upper lobe cavitary lesion Hyperglycemia Atelectasis Smoker Patient seen and examined Events Low oxygen requirements On room air Appears cachetic Labs and imaging reviewed CT of the chest shows thin walled cavitary lesion left upper lobe 5.4 x 3.7 cm HIV negative Management Supplemental oxygen as needed Titrate to maintain sats 90% or above Incentive spirometry Antibiotics Bronchodilators Monitor renal function Monitor electrolytes Supplement as needed AFB x3 DVT prophylaxis Plan discussed with: Patient JT LANDIN MD Mar 28, 2025 14:20
[2025-03-28 17:00] VITALS: BP 139/79; PULSE 63; RESP 20; TEMP 97.8; O2SAT 99
[2025-03-28 21:00] VITALS: BP 149/89; PULSE 66; RESP 18; TEMP 98; O2SAT 100
[2025-03-28] MEDS: INSULIN LANTUS (GLARGINE) 1 /0.01ml (100units/ml) SC SCH (23:25)
[2025-03-29 08:00] VITALS: RESP 18
[2025-03-29] MEDS: ACETAMINOPHEN 325 MG TAB PO PRN (10:08)
[2025-03-29] MEDS: HYDROcodone-ACET 10/325MG TAB PO PRN (16:16)
[2025-03-29 16:53] VITALS: BP 106/71; PULSE 82; RESP 20; TEMP 98.1; O2SAT 96
[2025-03-29 20:00] VITALS: PULSE 72; RESP 16; O2SAT 99
[2025-03-29 21:00] VITALS: BP 106/70; PULSE 72; RESP 16; TEMP 97; O2SAT 99
--- NOTE | 2025-03-29 23:01 | DVHPN2 ---
Progress Note - Dictate Date Seen: Mar 29, 2025 Medical Necessity Reason Pt with a Central, PICC or Fol: No Subjective Patient seen and examined at bedside. Breathing comfortably on room air. Overnight events reviewed. vital signs Vital Sign Date Time Temp Pulse Resp B/P (MAP) Pulse Ox O2 Delivery O2 Flow Rate FiO2 03/29/25 21:00 97.0 72 16 106/70 (82) 99 97.0 03/29/25 20:00 Room Air* 0 21 Total Intake and Output 03/28/25 03/28/25 03/29/25 15:00 23:00 07:00 Intake Total 2000 ml Balance 2000 ml medications Current Medications Medications Dose Ordered Sig/Paulette Route Start Time Stop Time Status Last Admin Dose Admin Ondansetron HCl 4 mg Q4HP PRN IV 03/27/25 07:15 Acetaminophen 650 mg Q6HP PRN PO 03/27/25 07:15 03/29/25 10:08 650 MG Diagnostic Test (Pha) 1 strip ACHS 03/27/25 11:30 03/29/25 16:22 1 STRIP Insulin Human Regular ACHS SC 03/27/25 11:30 03/29/25 16:24 3 UNITS Dextrose 50 ml UD PRN IV 03/27/25 07:15 Amlodipine Besylate 10 mg DAILY PO 03/27/25 10:00 03/27/25 11:03 10 MG Ceftriaxone Sodium 50 ml @ 100 mls/hr DAILY@09 IV 03/27/25 10:30 03/27/25 11:06 100 MLS/HR Azithromycin 250 ml @ 125 mls/hr DAILY IV 03/27/25 10:30 03/27/25 11:39 125 MLS/HR Insulin Glargine 15 units BID@1000,2200 SC 03/28/25 22:15 03/28/25 23:25 15 UNITS Acetaminophen/ Hydrocodone Bitart 1 tab Q6HP PRN PO 03/29/25 16:00 03/29/25 16:16 1 TAB Cyclobenzaprine HCl 5 mg Q12HP PRN PO 03/29/25 21:00 objective Gen.: Patient lying in bed in no apparent distress. Breathing on room air. Head: Normocephalic, atraumatic. Eyes: EOMI/PERRLA. Ears: Normal hearing. Normal anatomy. Neck/trachea: Trachea midline, supple. Nose: Normal external anatomy. Mouth: Moist mucous membranes. Chest: Decreased air entry bilaterally. No wheezing or rhonchi. Cardiovascular: Positive S1, positive S2. Regular rate and rhythm. Abdomen: Positive bowel sounds in all 4 quadrants. Soft, non-tender, non- distended. : Deferred. Rectal: Deferred. Skin: Warm, dry. Intact. Extremities: 2+ radial pulses bilaterally. No lower extremity edema. Neuro: Awake, alert, oriented x3. No gross motor or sensory deficits. Cranial nerves II through XII intact. Gait not assessed. laboratory and microbiology Laboratory Tests 03/27/25 01:45 Test 03/27/25 01:45 Range/Units Serum Glucose 475 #*H 74-106 mg/dL Assessment/Plan Impression Left upper lobe cavitary lesion Hyperglycemia Atelectasis Nicotine dependence Events Patient seen and examined Low oxygen requirements On room air Appears cachetic Continue antibiotics Accu-Cheks, ISS. Recommend PFTs as outpatient. Labs and imaging reviewed CT of the chest showed thin walled cavitary lesion left upper lobe 5.4 x 3.7 cm HIV negative Plan: Supplemental oxygen as needed Titrate to maintain sats above 92% Incentive spirometry Antibiotics Bronchodilators Monitor renal function Monitor electrolytes Supplement as needed AFB x3 DVT prophylaxis Prognosis: Guarded given patient's multiple co-morbidities. Rest of plan per hospitalist and other consultants. Thank you Dr. Pandya for allowing me to participate in this patient's care. Further recommendations will depend on the patient's clinical course. Please do not hesitate to contact me if you have any questions or concerns. This medical document was created using an electronic medical record system with [employer] dictation system. Although these documentations are being carefully reviewed, there may still be some phonetic and typographical changes. The errors are purely typographical, due to imperfection on the software program, and do not reflect any compromise in the patient's medical care. Plan discussed with: Patient, Other (BOB Deras) DENICE MATHIS MD Mar 29, 2025 23:01
[2025-03-30] MEDS: CYCLOBENZAPRINE HCL 10 MG TAB PO PRN (03:38)
[2025-03-30 05:00] VITALS: BP 90/57; PULSE 74; RESP 16; TEMP 97.4; O2SAT 100
[2025-03-30 07:50] VITALS: PULSE 71; RESP 19; O2SAT 98
[2025-03-30] MEDS ORDERED: NAP500T PO (15:48)
[2025-03-30] MEDS ORDERED: AZIT-43 PO (15:48)
--- NOTE | 2025-03-30 15:48 | DVHPN2 ---
Reviewed: Care Plan, H&P, Labs, Medications, Previous Orders, Radiology Changes from previous H/P or p: No Changes General: Per HPI Gastrointestinal: Diarrhea Objective Vitals Vital Signs Date Time Temp Pulse Resp B/P (MAP) Pulse Ox O2 Delivery O2 Flow Rate FiO2 03/30/25 10:00 98/71 03/30/25 07:50 71 19 98 Room Air* 0 21 03/30/25 05:00 97.4 97.4 Intake/Output Intake and Output 03/30/25 07:00 Intake Total 2050 ml Balance 2050 ml Intake Oral 2050 ml # Voids 4 General Appearance: Alert, Oriented X3 Cardiovascular: Regular rate, Normal S1, Normal S2 Medications Current Medications Medications Dose Ordered Sig/Paulette Route Start Time Stop Time Status Last Admin Dose Admin Ondansetron HCl 4 mg Q4HP PRN IV 03/27/25 07:15 Acetaminophen 650 mg Q6HP PRN PO 03/27/25 07:15 03/29/25 10:08 650 MG Diagnostic Test (Pha) 1 strip ACHS 03/27/25 11:30 03/30/25 11:30 1 STRIP Insulin Human Regular ACHS SC 03/27/25 11:30 03/29/25 16:24 3 UNITS Dextrose 50 ml UD PRN IV 03/27/25 07:15 Amlodipine Besylate 10 mg DAILY PO 03/27/25 10:00 03/27/25 11:03 10 MG Ceftriaxone Sodium 50 ml @ 100 mls/hr DAILY@09 IV 03/27/25 10:30 03/30/25 08:58 100 MLS/HR Azithromycin 250 ml @ 125 mls/hr DAILY IV 03/27/25 10:30 03/30/25 10:08 125 MLS/HR Insulin Glargine 15 units BID@1000,2200 SC 03/28/25 22:15 03/28/25 23:25 15 UNITS Acetaminophen/ Hydrocodone Bitart 1 tab Q6HP PRN PO 03/29/25 16:00 03/29/25 16:16 1 TAB Cyclobenzaprine HCl 5 mg Q12HP PRN PO 03/29/25 21:00 03/30/25 03:38 5 MG Laboratory Results Laboratory Tests 03/27/25 01:45 Labs and/or images reviewed: Labs reviewed by me, Image(s) reviewed by me Assessment/Plan Assessment/Plan Wolfgang Grey is a 59-year-old male with past medical history of diabetes and appendectomy who presents to the ED with fecal incontinence for 3 months. Patient endorses that his stool is brown or yellow sometimes liquid to solids. He states that he is very gassy. Patient also states that he takes Creon but does not know what it is for. He reports that he is currently homeless as he was in a recuperative care but lost his bed. Patient denies any chest pain, shortness of breath, fever, chills, lightheadedness, weakness, dizziness, abdominal pain, nausea, vomiting, recent trauma or injury, recent sick contacts, recent ingestion of spoiled food, or recent travels. Intractable diarrhea Left lower lobe cavitary lesion Left lower lobe infiltrate possibly pneumonia Anemia Thrombocytopenia History of diabetes ? Chronic pancreatitis on iv abx Plan discussed with: Patient My Orders Orders - ISAMAR CARRION DO Procedure Category Date Status Time Hydrocodone-Acet PHA 03/29/25 In Process 10/325mg Tab ([place] 16:00 Cyclobenzaprine PHA 03/29/25 In Process Tablet (Flexeril 21:00 * [employer] CONS 03/30/25 Transmitted Consult Date of Service: Mar 28, 2025 Billing Provider: ISAMAR CARRION DO Common Visit Codes: [id number] INP/OBS CARE(HIGH) ISAMAR CARRION DO Mar 30, 2025 15:48
--- NOTE | 2025-03-30 15:49 | DVHPN2 ---
Reviewed: Care Plan, H&P, Medications, Previous Orders, Radiology Changes from previous H/P or p: No Changes General: Per HPI Gastrointestinal: Diarrhea Objective Vitals Vital Signs Date Time Temp Pulse Resp B/P (MAP) Pulse Ox O2 Delivery O2 Flow Rate FiO2 03/30/25 10:00 98/71 03/30/25 07:50 71 19 98 Room Air* 0 21 03/30/25 05:00 97.4 97.4 Intake/Output Intake and Output 03/30/25 07:00 Intake Total 2050 ml Balance 2050 ml Intake Oral 2050 ml # Voids 4 General Appearance: Alert, Oriented X3, Cooperative Cardiovascular: Regular rate, Normal S1, Normal S2 Medications Current Medications Medications Dose Ordered Sig/Paulette Route Start Time Stop Time Status Last Admin Dose Admin Ondansetron HCl 4 mg Q4HP PRN IV 03/27/25 07:15 Acetaminophen 650 mg Q6HP PRN PO 03/27/25 07:15 03/29/25 10:08 650 MG Diagnostic Test (Pha) 1 strip ACHS 03/27/25 11:30 03/30/25 11:30 1 STRIP Insulin Human Regular ACHS SC 03/27/25 11:30 03/29/25 16:24 3 UNITS Dextrose 50 ml UD PRN IV 03/27/25 07:15 Amlodipine Besylate 10 mg DAILY PO 03/27/25 10:00 03/27/25 11:03 10 MG Ceftriaxone Sodium 50 ml @ 100 mls/hr DAILY@09 IV 03/27/25 10:30 03/30/25 08:58 100 MLS/HR Azithromycin 250 ml @ 125 mls/hr DAILY IV 03/27/25 10:30 03/30/25 10:08 125 MLS/HR Insulin Glargine 15 units BID@1000,2200 SC 03/28/25 22:15 03/28/25 23:25 15 UNITS Acetaminophen/ Hydrocodone Bitart 1 tab Q6HP PRN PO 03/29/25 16:00 03/29/25 16:16 1 TAB Cyclobenzaprine HCl 5 mg Q12HP PRN PO 03/29/25 21:00 03/30/25 03:38 5 MG Laboratory Results Laboratory Tests 03/27/25 01:45 Labs and/or images reviewed: Labs reviewed by me, Image(s) reviewed by me Assessment/Plan Assessment/Plan Wolfgang Grey is a 59-year-old male with past medical history of diabetes and appendectomy who presents to the ED with fecal incontinence for 3 months. Patient endorses that his stool is brown or yellow sometimes liquid to solids. He states that he is very gassy. Patient also states that he takes Creon but does not know what it is for. He reports that he is currently homeless as he was in a recuperative care but lost his bed. Patient denies any chest pain, shortness of breath, fever, chills, lightheadedness, weakness, dizziness, abdominal pain, nausea, vomiting, recent trauma or injury, recent sick contacts, recent ingestion of spoiled food, or recent travels. Intractable diarrhea Left lower lobe cavitary lesion Left lower lobe infiltrate possibly pneumonia Anemia Thrombocytopenia History of diabetes ? Chronic pancreatitis on iv abx Plan discussed with: Patient My Orders Orders - ISAMAR CARRION DO Procedure Category Date Status Time Hydrocodone-Acet PHA 03/29/25 In Process 10/325mg Tab ([place] 16:00 Cyclobenzaprine PHA 03/29/25 In Process Tablet (Flexeril 21:00 * [employer] CONS 03/30/25 Transmitted Consult Date of Service: Mar 29, 2025 Billing Provider: ISAMAR CARRION DO Common Visit Codes: [id number] INP/OBS CARE(HIGH) ISAMAR CARRION DO Mar 30, 2025 15:49
--- NOTE | 2025-03-30 15:49 | DVHDS2 ---
Discharge Summary Date of Admission Mar 27, 2025 at 07:08 Date of Discharge: Mar 30, 2025 Labs/Diagnostic Data: Laboratory Results Test 03/30/25 11:55 03/27/25 10:57 03/27/25 01:45 POC Glucose 101 mg/dl (70-106) HIV (1&2) Antibody Negative (Negative) White Blood Count 10.0 10^3/uL (4.4-10.8) Red Blood Count 3.66 10^6/uL (4.5-5.90) Hemoglobin 11.5 g/dL (13.5-17.5) Hematocrit 34.6 % (41.0-53.0) Mean Corpuscular Volume 94.5 fL (80.0-100.0) Mean Corpuscular Hemoglobin 31.4 pg (28.0-32.0) Mean Corpuscular Hemoglobin Concent 33.2 g/dL (32.0-36.0) Red Cell Distribution Width 13.4 % (11.8-14.3) Platelet Count 133 10^3/uL (140-450) Mean Platelet Volume 8.9 fL (6.9-10.8) Neutrophils (%) (Auto) 87.8 % (37.0-80.0) Lymphocytes (%) (Auto) 8.3 % (10.0-50.0) Monocytes (%) (Auto) 3.6 % (0.0-12.0) Eosinophils (%) (Auto) 0.2 % (0.0-7.0) Basophils (%) (Auto) 0.1 % (0.0-2.0) Neutrophils # (Auto) 8.8 10 ^3/uL (1.6-8.6) Lymphocytes # (Auto) 0.8 10 ^3/uL (0.4-5.4) Monocytes # (Auto) 0.4 10 ^3/uL (0-1.3) Eosinophils # (Auto) 0 10 ^3/uL (0-0.8) Basophils # (Auto) 0 10 ^3/uL (0-0.2) Nucleated Red Blood Cells 0.0 % Sodium Level 138 mmol/L (136-145) Potassium Level 3.7 mmol/L (3.5-5.1) Chloride Level 103 mmol/L (98-107) Carbon Dioxide Level 24 mmol/L (20-31) Anion Gap 11 (5-15) Blood Urea Nitrogen 13 mg/dL (9-23) Creatinine 1.20 mg/dL (0.700-1.30) Glomerular Filtration Rate Calc 70 mL/min (>90) BUN/Creatinine Ratio 10.8 (10.0-20.0) Serum Glucose 475 mg/dL (74-106) Hemoglobin A1c 8.0 % A1C (<5.7) Calcium Level 9.0 mg/dL (8.7-10.4) Other Laboratory Tests 03/27/25 01:45 Brief Hx & Hospital Course: Wolfgang Grey is a 59-year-old male with past medical history of diabetes and appendectomy who presents to the ED with fecal incontinence for 3 months. Patient endorses that his stool is brown or yellow sometimes liquid to solids. He states that he is very gassy. Patient also states that he takes Creon but does not know what it is for. He reports that he is currently homeless as he was in a recuperative care but lost his bed. Patient denies any chest pain, shortness of breath, fever, chills, lightheadedness, weakness, dizziness, abdominal pain, nausea, vomiting, recent trauma or injury, recent sick contacts, recent ingestion of spoiled food, or recent travels. Intractable diarrhea Left lower lobe cavitary lesion Left lower lobe infiltrate possibly pneumonia Anemia Thrombocytopenia History of diabetes ? Chronic pancreatitis discharged to home with IV aBx Condition at Discharge: Fair Final Diagnosis/Problems List see above Discharge Disposition: Home Discharge Instruct/Medications Diet: Cardiac 2g Na,low cholest Activity: No Restrictions, As Tolerated Discharge Statement: "Patient was advised to return to the ER or call 911 if any headaches, dizziness, shortness of breath, chest pain, abdominal pain, bleeding, fevers, or worsening of medical condition. Patient was counseled about treatment plan, medications, possible side effects, patientverbalized understanding. All questions were answered to the best of my ability. This discharge took greater then 30 minutes in planning, reviewing documentation, counseling the patient, and discussing with other team members." ASSESSMENT ASSESSMENT Assessment Date of Service: Mar 30, 2025 Billing Provider: ISAMAR CARRION DO Common Visit Codes: 04883-MFT/OBS DISCH DAY >30min ISAMAR CARRION DO Mar 30, 2025 15:49
[2025-03-30 16:18] VITALS: BP 98/71; PULSE 71; RESP 19; TEMP 97; O2SAT 98
--- NOTE | 2025-03-30 23:41 | DVHPN2 ---
Progress Note - Dictate Date Seen: Mar 30, 2025 Medical Necessity Reason Pt with a Central, PICC or Fol: No Subjective Patient seen and examined at bedside. Breathing comfortably on room air. Overnight events reviewed. vital signs Vital Sign Date Time Temp Pulse Resp B/P (MAP) Pulse Ox O2 Delivery O2 Flow Rate FiO2 03/30/25 16:18 97.0 71 19 98 03/30/25 10:00 98/71 03/30/25 07:50 Room Air* 0 21 Total Intake and Output 03/29/25 03/29/25 03/30/25 15:00 23:00 07:00 Intake Total 1650 ml 400 ml Balance 1650 ml 400 ml objective Gen.: Patient lying in bed in no apparent distress. Appears cachectic. Breathing on room air. Head: Normocephalic, atraumatic. Eyes: EOMI/PERRLA. Ears: Normal hearing. Normal anatomy. Neck/trachea: Trachea midline, supple. Nose: Normal external anatomy. Mouth: Moist mucous membranes. Chest: Decreased air entry bilaterally. No wheezing or rhonchi. Cardiovascular: Positive S1, positive S2. Regular rate and rhythm. Abdomen: Positive bowel sounds in all 4 quadrants. Soft, non-tender, non- distended. : Deferred. Rectal: Deferred. Skin: Warm, dry. Intact. Extremities: 2+ radial pulses bilaterally. No lower extremity edema. Neuro: Awake, alert, oriented x3. No gross motor or sensory deficits. Cranial nerves II through XII intact. Gait not assessed. laboratory and microbiology Laboratory Tests 03/27/25 01:45 Test 03/27/25 01:45 Range/Units Serum Glucose 475 #*H 74-106 mg/dL Assessment/Plan Impression Left upper lobe cavitary lesion Hyperglycemia Atelectasis Nicotine dependence Events Patient seen and examined Remains on room air No distress. Note, patient refuses medication/antibiotics at times. Accu-Cheks, ISS. TB rule out - AFB smears pending. Recommend PFTs as outpatient. Labs and imaging reviewed. CT of the chest showed thin walled cavitary lesion left upper lobe 5.4 x 3.7 cm HIV negative Plan: Supplemental oxygen as needed Titrate to maintain sats above 92% Incentive spirometry Antibiotics Bronchodilators Monitor renal function Monitor electrolytes Supplement as needed AFB x3 DVT prophylaxis Prognosis: Guarded given patient's multiple co-morbidities. Rest of plan per hospitalist and other consultants. Thank you Dr. Pandya for allowing me to participate in this patient's care. Further recommendations will depend on the patient's clinical course. Please do not hesitate to contact me if you have any questions or concerns. This medical document was created using an electronic medical record system with [employer] dictation system. Although these documentations are being carefully reviewed, there may still be some phonetic and typographical changes. The errors are purely typographical, due to imperfection on the software program, and do not reflect any compromise in the patient's medical care. Plan discussed with: Patient, Other (BOB Deras) DENICE MATHIS MD Mar 30, 2025 23:41
[2025-04-01 13:07] LABS: Aspergillus flavus Negative (Neg:<1:1); Aspergillus fumigatus Negative (Neg:<1:1); Aspergillus niger Negative (Neg:<1:1)
[2025-04-01 14:06] LABS: QuantiFERON-TB Gold Plus Negative (Negative)
== END 2025-03-30 17:00 | disposition home or self-care (01) | DRG 248 ==
LOC: ER 23:56 → OVERFLOW 03-27 07:08 → WEST WING 03-27 07:10
PROVIDERS: ADMIT Internal Medicine; ATTEND Internal Medicine
DX: A04.9 Bacterial intestinal infection, unspecified (principal); J15.69 Pneumonia due to other Gram-negative bacteria; D69.6 Thrombocytopenia, unspecified; J15.9 Unspecified bacterial pneumonia; D64.9 Anemia, unspecified; E11.65 Type 2 diabetes mellitus with hyperglycemia; F17.210 Nicotine dependence, cigarettes, uncomplicated; I10 Essential (primary) hypertension; J98.11 Atelectasis; Z83.3 Family history of diabetes mellitus; Z82.49 Family history of ischemic heart disease and other diseases of the circulatory system; Z59.00 Homelessness unspecified; Z79.84 Long term (current) use of oral hypoglycemic drugs; Z90.49 Acquired absence of other specified parts of digestive tract; Z79.899 Other long term (current) drug therapy
CPT/HCPCS: 36415; 71250; 74176; 80048; 82962; 83036; 85025; 86606; 86703; 96361; 96374; 96375; G0378; J1815; J2405

== ENCOUNTER 2025-03-31 23:58 | Inpatient (IN) | payer OTHER ==
[~2025-03-31] VITALS: Ht 170.2 cm; Wt 45.0 kg
[~2025-03-31 23:58] MED LIST: AMLO1TAB23 PO; AZIT-43 PO; NAP500T PO; PANC1CAP53 PO
[2025-04-01] VITALS (8 sets, daily range): BP systolic 93–146; BP diastolic 73–89; PULSE 56–100; RESP 8–16; TEMP 94.7–97.1; O2SAT 98–100
[2025-04-01] MEDS: DEXTROSE (50%) 50ML SYRG IV ONE ×4 (00:52→07:02)
[2025-04-01] MEDS: DEXTROSE 50% SYRINGE 50 ML IV ONE (00:52)
--- NOTE | 2025-04-01 00:56 | ED.PDOC ---
Altered Mental Status HPI Comments 59 y/o M is BIBA for c/o ALOC. Per EMS, patient was found by family in current altered state, characterized by decrease responsiveness, this evening. On scene, he was noted to have had an initial blood glucose reading in the 20's. Significant history of DM and polysubstance abuse. Seen at ED, twice, for similar for hypoglycemia on March 25 and 2024. En route, patient received insulin by EMS, with positive response. No further associated symptoms reported. Time Seen by MD: 00:00 Reviewed Notes: Nurses Notes, Boiler Assistant Operator Notes, Medications, Allergies Allergies: Coded Allergies: No Known Drug Allergy (Verified Allergy, Unknown, 03/25/25) Home Meds Active Scripts Naproxen (NAPROSYN TABLET) 500 Mg Tb, 1 TAB PO BID for 10 Days, #20 TAB 1 Refill Prov:ISAMAR CARRION Johnny DO 03/30/25 Azithromycin (Azithromycin) 250 Mg Tab, 250 MG PO DAILY MDD 500 for 5 Days, #6 TAB 0 Refills 2 TABLETS ORALLY ON DAY ONE, THEN 1 TABLET ORALLY DAILY FOR 4 DAYS Prov:ISAMAR CARRION DO 03/30/25 Reported Medications Amlodipine Besylate (Amlodipine Besylate) 10 Mg Tab, 1 TAB PO DAILY 03/27/25 Pancrelipase (Lipase-Protease- (Creon) 6,000 Unit Cap, PO 03/27/25 Information Source: Patient, Emergency Med Personnel Mode of Arrival: EMS Severity: Moderate Timing: Hours Duration: Since onset Prehospital treatment: 12 Lead EKG, Accucheck, Emergency Medicine, Other (insulin ) Past Medical History PAST MEDICAL HISTORY: DM, UTI'S Surgical History: Unknown Family History Family History: Reviewed,noncontributory to illness Social History Smoker: Cigarettes Alcohol: Occasionally Drugs: Marijuana Lives In: Home All Other Systems: Reviewed and Negative (Comprehensive systems review obtained and negative except for what is stated in the HPI.) Physical Exam General Appearance: No Apparent Distress, Normal HEENT: Normal ENT Inspection, Pharynx Normal, TMs Normal Neck: Full Range of Motion, Non-Tender, Normal, Normal Inspection Respiratory: Chest Non-Tender, Lungs Clear, No Accessory Muscle Use, No Respiratory Distress, Normal Breath Sounds Cardiovascular: No Edema, No JVD, No Murmur, No Gallop, Normal Peripheral Pulses, Regular Rate/Rhythm Breast Exam: Deferred Gastrointestinal: No Organomegaly, Non Tender, No Pulsatile Mass, Normal Bowel Sounds, Soft Genitalia: Deferred Pelvic: Deferred Rectal: Deferred Extremities: No calf tenderness, Normal capillary refill, Normal inspection, Normal range of motion, Non-tender, No pedal edema Musculoskeletal : Apperance: Normal Neurologic: Alert, barkeeper II-XII nml as Tested, No Motor Deficits, Normal Affect, Normal Mood, No Sensory Deficits Cerebellar Function: Normal Reflexes: Normal Skin: Dry, Normal Color, Warm Lymphatic: No Adenopathy Was a procedure done? Was a procedure done?: No Differential Diagnosis (ALOC) Differential Diagnosis: Dehydration, Hypoglycemia, DKA, Encephalopathy, Sepsis, Hypoxemia, Drug Overdose, ETOH Intoxication, Heart Failure, Renal Failure, Other (mediation overdose, gastritis, pud, esophageal varices, LGIB, marrow failure, hemolysis, sequestration) X-Ray, Labs, Meds, VS Vital Signs Date Time Temp Pulse Resp B/P (MAP) Pulse Ox O2 Delivery O2 Flow Rate FiO2 04/01/25 00:15 97.9 83 18 158/75 (102) 98 97.9 Lab Test 04/01/25 01:30 04/01/25 01:20 04/01/25 00:41 04/01/25 00:36 Range/Units Troponin I High Sensitivity Pending 7 </=54 ng/L Urine Color Pending Urine Clarity Pending Urine pH Pending Urine Specific [place] Pending Urine Protein Pending Urine Ketones Pending Urine Blood Pending Urine Nitrite Pending Urine Bilirubin Pending Urine Urobilinogen Pending Urine Leukocyte Esterase Pending Urine RBC Pending Urine Microscopic WBC Pending Urine Squamous Epithelial Cells Pending Urine Bacteria Pending Urine Glucose Pending Urine Opiates Screen Pending Urine Fentanyl Screen Pending Urine Barbiturates Screen Pending Urine Phencyclidine Screen Pending Urine Amphetamines Screen Pending Urine Benzodiazepines Screen Pending Urine Cocaine Screen Pending Urine Cannabinoids Screen Pending POC Glucose 34 *L 70-106 mg/dl White Blood Count 12.6 #H 4.4-10.8 10^3/uL Red Blood Count 1.94 L 4.5-5.90 10^6/uL Hemoglobin 6.1 #*L 13.5-17.5 g/dL Hematocrit 18.2 #L 41.0-53.0 % Mean Corpuscular Volume 93.8 80.0-100.0 fL Mean Corpuscular Hemoglobin 31.6 28.0-32.0 pg Mean Corpuscular Hemoglobin Concent 33.6 32.0-36.0 g/dL Red Cell Distribution Width 13.3 11.8-14.3 % Platelet Count 106 L 140-450 10^3/uL Mean Platelet Volume 8.4 6.9-10.8 fL Neutrophils (%) (Auto) 84.6 H 37.0-80.0 % Lymphocytes (%) (Auto) 10.7 10.0-50.0 % Monocytes (%) (Auto) 4.4 0.0-12.0 % Eosinophils (%) (Auto) 0.1 0.0-7.0 % Basophils (%) (Auto) 0.2 0.0-2.0 % Neutrophils # (Auto) 10.6 H 1.6-8.6 10 ^3/uL Lymphocytes # (Auto) 1.3 0.4-5.4 10 ^3/uL Monocytes # (Auto) 0.6 0-1.3 10 ^3/uL Eosinophils # (Auto) 0 0-0.8 10 ^3/uL Basophils # (Auto) 0 0-0.2 10 ^3/uL Nucleated Red Blood Cells 0.0 % Sodium Level 141 136-145 mmol/L Potassium Level 3.0 L 3.5-5.1 mmol/L Chloride Level 106 98-107 mmol/L Carbon Dioxide Level 26 20-31 mmol/L Anion Gap 9 5-15 Blood Urea Nitrogen 46 H 9-23 mg/dL Creatinine 1.17 0.700-1.30 mg/dL Glomerular Filtration Rate Calc 72 >90 mL/min BUN/Creatinine Ratio 39.3 H 10.0-20.0 Serum Glucose 50 L 74-106 mg/dL Calcium Level 9.4 8.7-10.4 mg/dL Plasma/Serum Blood Alcohol Pending Current Medications Medications (Trade) Dose Ordered Sig/Paulette Route Start Time Stop Time Status Last Admin Dextrose 50 ml ONCE ONCE IV 04/01/25 01:00 04/01/25 01:01 DC 04/01/25 00:52 Dextrose/Sodium Chloride 1,000 ml @ 100 mls/hr Q10H ONCE IV 04/01/25 01:15 04/01/25 11:14 04/01/25 01:34 Pantoprazole Sodium (Protonix) 40 mg ONCE ONCE IV 04/01/25 01:15 04/01/25 01:16 DC 04/01/25 01:34 Time of 1ST Reevaluation: 00:30 Reevaluation 1ST: Improved Time of 2ND Reevaluation: 01:04 Reevaluation 2ND: Improved Patient Education/Counseling: Diagnosis, Treatment, Prognosis, Need For Follow Up Family Education/Counseling: No Family Present Additional Information Previous visits reviewed: March 25, 2025 and March 27, 2025 encounters for metabolic encephalopathy and intractable diarrhea and hypoglycemia, respectively The following tests were ordered, and results were reviewed by me: Urine ethanol, drug screen EKG, troponin, Accucheck, CXR, UA, BMP, CBC Additional Information was gathered from interviewing the following independent historians: EMS I reviewed and agreed with the following test results read by other providers: CXR I discussed treatment and results with medical personnel and: patient pt's BS dropped again while he is here. he is uninterested in taking oral food. i am starting dextrose iv. and q1 hour accucheck. pt is unhoused and will be admitted for monitoring and treatment of the recurrent hypoglycemia pt was recently admitted for diarrhea. he reports that yesterday, he had black diarrhea. no vomiting. no pain. he is now anemic. pt has lower gib. he will need to be evaluated by GI. he will and PRBC SEPSIS Sepsis Screen Physician Orders Basic Metabolic Panel (04/01/25 00:07) Urinalysis (04/01/25 00:07) Chest Portable (04/01/25 00:07) Accucheck (04/01/25 00:07) Continuous Ekg Monitoring 08,12,16,20,00,04 (04/01/25 00:07) Electrocardigram (04/01/25 00:07) Troponin-I Hs (04/01/25 01:07) Troponin-I Hs (04/01/25 03:07) Electrocardigram (04/01/25 01:07) Electrocardigram (04/01/25 03:07) Drug Screen (04/01/25 00:07) Urine Ethanol (04/01/25 00:07) Accucheck (04/01/25 01:02) D5w/Sod Chlo 0.9% (D5w Ns 0.9%) (04/01/25 01:15) Type And Screen (04/01/25 01:12) Transfuse Blood (04/01/25 ) Vital Signs Date Time Temp Pulse Resp B/P (MAP) Pulse Ox O2 Delivery O2 Flow Rate FiO2 04/01/25 00:15 97.9 83 18 158/75 (102) 98 97.9 Laboratory Tests Test 04/01/25 00:36 White Blood Count 12.6 10^3/uL (4.4-10.8) #H Medications Medications Dose Ordered Sig/Paulette Route Start Time Stop Time Status Last Admin Dose Admin Dextrose 50 ml ONCE ONCE IV 04/01/25 01:00 04/01/25 01:01 DC 04/01/25 00:52 Dextrose/Sodium Chloride 1,000 ml @ 100 mls/hr Q10H ONCE IV 04/01/25 01:15 04/01/25 11:14 04/01/25 01:34 Pantoprazole Sodium 40 mg ONCE ONCE IV 04/01/25 01:15 04/01/25 01:16 DC 04/01/25 01:34 Departure 1 Departure Time of Disposition: 01:42 Impression: Primary Impression: Hypoglycemic event due to diabetes Additional Impressions: Anemia Qualified Codes: D64.9 - Anemia, unspecified Melena Lower GI bleed Disposition: ADMITTED INPATIENT Admit to: ICU Condition: Serious Discharged With: Self Critical Care Note Critical Care Time?: Yes (55 min-critical care time only) Critical care comment: Due to concerns for patients condition deteriorating, the care required my highest level of attention and readiness to intervene. I assessed the patient, reviewed the medical records, ordered the appropriate tests and treatments, then reassessed for results and responsiveness. I communicated with medical personnel and consultants and formulated a plan of care. Total critical care time excludes any procedures Stability Stability form required: No Heart Score Heart Score: Heart Score Response (Comments) Value History N/A 0 EKG N/A 0 Age N/A 0 Risk Factors N/A 0 Troponin N/A 0 Total 0 I personally scribed for SARAH MARVIN MD ([email or web address]) on 04/01/25 at 00:55. Electronically submitted by Orion Silva ([email or web address]). I personally scribed for SARAH MARVIN MD ([email or web address]) on 04/01/25 at 00:58. Electronically submitted by Orion Silva ([email or web address]). SARAH MARVIN MD Apr 01, 2025 00:55
[2025-04-01 00:59] LABS: Nucleated Red Blood Cells % 0.0 %
[2025-04-01 01:01] LABS: Hematocrit 18.2 % (41.0-53.0); Mean Corpuscular Hemoglobin 31.6 pg (28.0-32.0); Mean Corpuscular Volume 93.8 fL (80.0-100.0)
[2025-04-01 01:06] LABS: Hemoglobin 6.1 g/dL (13.5-17.5)
[2025-04-01 01:08] LABS: Chloride 106 mmol/L (98-107); Sodium 141 mmol/L (136-145)
[2025-04-01 01:09] LABS: Anion Gap 9 (5-15); Calcium 9.4 mg/dL (8.7-10.4); Carbon Dioxide 26 mmol/L (20-31)
[2025-04-01 01:12] LABS: Potassium 3.0 mmol/L (3.5-5.1)
[2025-04-01 01:14] LABS: BUN/Creatinine Ratio 39.3 (10.0-20.0)
[2025-04-01 01:15] LABS: Blood Urea Nitrogen 46 mg/dL (9-23); Glucose 50 mg/dL (74-106)
--- NOTE | 2025-04-01 01:29 | DVH ---
CHEST RADIOGRAPH Indication: altered Technique: Single frontal view of the chest was obtained COMPARISON: XY CHEST PORTABLE on DOS: 03/25/25 FINDINGS: Lines and Tubes: None Lungs: No evidence of focal consolidation. Chronic appearing bilateral interstitial pulmonary markin gs. Pleura: No effusion. No pneumothorax. Cardiomediastinal contours: Unremarkable Bones: Unremarkable IMPRESSION: 1. No acute disease. Chronic appearing bilateral interstitial pulmonary markings.
[2025-04-01] MEDS: PANTOPRAZOLE 40 MG/10 ML VIAL INJ IV ONE ×2 (01:34→03:15)
[2025-04-01] MEDS: D5W/SOD CHLO 0.9% 1,000 ML IV ONE (01:34)
[2025-04-01 02:05] LABS: Urine Budding Yeast OCCASIONAL /hpf (None Seen); Urine Protein, UAD TRACE (Negative)
[2025-04-01 02:06] LABS: Amphetamine Screen, Urine Neg (NEGATIVE)
[2025-04-01 02:07] LABS: Cannabinoid Screen, Urine Pos (NEGATIVE)
[2025-04-01 02:08] LABS: Barbiturate Scree,Urine Neg (NEGATIVE); Benzodiazephine Screen, Urine Neg (NEGATIVE); Cocaine Screen, Urine Neg (NEGATIVE); Opiate Scree,Urine Neg (NEGATIVE); Phencyclidine Screen, Urine Neg (NEGATIVE)
--- NOTE | 2025-04-01 03:01 | DVHHP2 ---
History of Present Illness History of Present Illness Patient is 59 years old male with a past medical history of diabetes mellitus type 2, polysubstance abuse, chronic pancreatitis was brought in by EMS due to altered mental status. As per ER documentation and history taking from the patient patient was found with altered mental status and decreased responsiveness at the scene. Patient's blood sugar at the scene was noted to have been in 20s. As per patient he got to the wrong dose of insulin that is why he got hypoglycemic and altered mental status. Patient also reported that he has been having black tarry colored stool lately for last 2 days and feeling tired for the same duration. Patient had recent hospital admission in March 2025 with the hypoglycemia. On 03/27/2025 CT chest revealed-Thin walled cavitary lesion left upper lobe 5.4 x 3.7 cm. Question due to granulomatous disease. On 03/27/2025 CT abdomen and pelvis revealed-Signs of chronic pancreatitis Left lower lobe infiltrate. There is also a small cavitary lesion in the left lower lung zone raising question of granulomatous disease. Urine culture on 03/25/2025 revealed Klebsiella pneumoniae. [facility] HIV 1 and 2 was negative. Pending Aspergilius and TB Gold test report. Initial lab workup revealed leukocytosis with WBC 12.6, severe anemia with a hemoglobin 6.1, platelet 106, neutrophil 84.6, hypokalemia with potassium 3.0, serum creatinine 1.17, BUN 46, troponin I with a normal limit, UDS positive for cannabinoids. Urinalysis negative. Iron study revealed serum iron 44, TIBC 182, ferritin 548.2. In the ER patient developed new onset atrial fibrillation. Patient developed recurrent hypoglycemic episode. Dextrose 50% was given 3 times due to recurrent hypoglycemic. Patient also developed hypotension and IV normal saline 500 bolus was given. Past Medical History diabetes mellitus type 2, polysubstance abuse, chronic pancreatitis Past Surgical History Appendectomy Past Social History Patient reported doing marijuana, occasional smoker, denies alcoholism, lives with his boss,s son home Home Medications-insulin, Creon, Review of Systems Review of Systems Allergy- NKDA Patient was seen today at the bedside. Cardiovascular- deny acute chest pain or shortness of breath or cough or palpitation Respiratory denies cough or short of breath or wheezing Gastrointestinal- denies any rectal bleeding, nausea or vomiting Musculoskeletal-denies acute joint swelling or tenderness or redness Neurological- denies acute dysarthria, dysphagia, change in vision Psychiatry- denies depression or SI or HI Skin- denies acute rash or purpura Allergies: Coded Allergies: No Known Drug Allergy (Verified Allergy, Unknown, 03/25/25) Medications Current Medications Medications Dose Ordered Sig/Paulette Route Start Time Stop Time Status Last Admin Dose Admin Sodium Chloride 10 ml Q8HR IV 04/01/25 06:00 Pantoprazole Sodium 40 mg BID IV 04/01/25 10:00 Dextrose/Sodium Chloride 1,000 ml @ 100 mls/hr Q10H IV 04/01/25 02:45 Exam Vital Signs Vital Signs Date Time Temp Pulse Resp B/P (MAP) Pulse Ox O2 Delivery O2 Flow Rate FiO2 04/01/25 01:05 97.3 100 16 113/60 (77) 100 97.3 04/01/25 01:05 Room Air* 0 21 Exam General examination- malnourished, cachexia, anemic HEENT- PEERLA, no acute nasal discharge Cardiovascular- S1-S2 audible, rate and rhythm regular, no murmur Respiratory- CTAB, no wheeze or rhonchi Gastrointestinal-nontender, bowel sound+. Nondistended Rectal exam-no hemorrhoids or rectal mass noted Musculoskeletal-no acute joint swelling or tenderness or redness Lower extremity- no leg edema Neurological- cranial nerves intact, no acute dysarthria or dysphagia Psychiatry- denies depression or SI or HI Skin- no purpura Labs/Xrays Labs Test 04/01/25 01:30 04/01/25 01:20 04/01/25 00:41 04/01/25 00:36 Range/Units Troponin I High Sensitivity 7 </=54 ng/L Urine Color Light-yellow Yellow Urine Clarity Clear Clear Urine pH 5.0 5.0-9.0 Urine Specific [place] 1.014 1.001-1.035 Urine Protein Trace H Negative Urine Ketones Negative Negative Urine Blood Trace H Negative /uL Urine Nitrite Negative Negative Urine Bilirubin Negative Negative Urine Urobilinogen Normal Negative mg/dL Urine Leukocyte Esterase Negative Negative /uL Urine RBC None seen 0 - 3 /hpf Urine Microscopic WBC 1 0-3 /HPF Urine Squamous Epithelial Cells None seen <5 /hpf Urine Bacteria None seen None Seen /hpf Urine Yeast (Budding) Occasional None Seen /hpf Urine Glucose Normal Normal mg/dL Urine Opiates Screen Neg NEGATIVE Urine Fentanyl Screen Neg NEGATIVE Urine Barbiturates Screen Neg NEGATIVE Urine Phencyclidine Screen Neg NEGATIVE Urine Amphetamines Screen Neg NEGATIVE Urine Benzodiazepines Screen Neg NEGATIVE Urine Cocaine Screen Neg NEGATIVE Urine Cannabinoids Screen Pos NEGATIVE POC Glucose 34 *L 70-106 mg/dl White Blood Count 12.6 #H 4.4-10.8 10^3/uL Red Blood Count 1.94 L 4.5-5.90 10^6/uL Hemoglobin 6.1 #*L 13.5-17.5 g/dL Hematocrit 18.2 #L 41.0-53.0 % Mean Corpuscular Volume 93.8 80.0-100.0 fL Mean Corpuscular Hemoglobin 31.6 28.0-32.0 pg Mean Corpuscular Hemoglobin Concent 33.6 32.0-36.0 g/dL Red Cell Distribution Width 13.3 11.8-14.3 % Platelet Count 106 L 140-450 10^3/uL Mean Platelet Volume 8.4 6.9-10.8 fL Neutrophils (%) (Auto) 84.6 H 37.0-80.0 % Lymphocytes (%) (Auto) 10.7 10.0-50.0 % Monocytes (%) (Auto) 4.4 0.0-12.0 % Eosinophils (%) (Auto) 0.1 0.0-7.0 % Basophils (%) (Auto) 0.2 0.0-2.0 % Neutrophils # (Auto) 10.6 H 1.6-8.6 10 ^3/uL Lymphocytes # (Auto) 1.3 0.4-5.4 10 ^3/uL Monocytes # (Auto) 0.6 0-1.3 10 ^3/uL Eosinophils # (Auto) 0 0-0.8 10 ^3/uL Basophils # (Auto) 0 0-0.2 10 ^3/uL Nucleated Red Blood Cells 0.0 % Sodium Level 141 136-145 mmol/L Potassium Level 3.0 L 3.5-5.1 mmol/L Chloride Level 106 98-107 mmol/L Carbon Dioxide Level 26 20-31 mmol/L Anion Gap 9 5-15 Blood Urea Nitrogen 46 H 9-23 mg/dL Creatinine 1.17 0.700-1.30 mg/dL Glomerular Filtration Rate Calc 72 >90 mL/min BUN/Creatinine Ratio 39.3 H 10.0-20.0 Serum Glucose 50 L 74-106 mg/dL Calcium Level 9.4 8.7-10.4 mg/dL Assessment/Plan Assessment/Plan Assessment and plan Metabolic encephalopathy likely due to hypoglycemia/severe anemia Altered mental status Suspected sepsis likely due to pneumonia/UTI Recurrent Severe hypoglycemia Severe anemia likely due to GI bleeding New Onset Atrial fibrillation Diabetes mellitus type 2 Leukocytosis under evaluation Thrombocytopenia Hypokalemia Substance abuse History of chronic pancreatitis Protein calorie malnutrition Plan Blood transfusion order in place Ordered stool occult blood test Monitor blood sugar level Continue IV fluid as prescribed Continue IV pantoprazole drip Ordered GI consult for further evaluation and care Ordered ceftriaxone 1 g IV daily Pending blood culture and urine culture Goals of care, Code status ; discussed with >15 minutes PUD prophylaxis: Pantoprazole DVT prophylaxis: No due to Thrombocytopenia Plan discussed with Dr. Gary , nursing staff, Total time spent on patient evaluation, chart review, assessment and plan, discussion discussion >35 minutes Plan discussed with: Patient, Other (RN) My Orders Orders - MEÑO POE RESIDENT Procedure Category Date Status Time Admit ADMIT 04/01/25 Transmitted 02:35 Code Status CODE 04/01/25 Transmitted 02:35 Sodium Chloride Lock PHA 04/01/25 In Process (Saline Lock Ns) 06:00 Complete Blood Count LAB 04/02/25 Verified 04:00 Comprehensive LAB 04/02/25 Verified Metabolic Panel 04:00 Npo (Nothing By DIET 04/01/25 Transmitted Mouth) Diet Breakfast Notify Of Changes ALEJANDRA 04/01/25 In Process From Base 02:35 Tie Cutter For ALEJANDRA 04/01/25 In Process 24 Hours 02:35 Hepatic Panel LAB 04/01/25 In Process 02:36 Thyroid Stimulating LAB 04/01/25 In Process Hormone 02:36 Stool Occult Blood LAB 04/01/25 Logged 02:36 Pantoprazole PHA 04/01/25 In Process (Protonix) 10:00 * Gi Dvh Video Game Technician CONS 04/01/25 Transmitted 02:36 D5w/Sod Chlo 0.9% PHA 04/01/25 In Process (D5w Ns 0.9%) 02:45 Blood Alcohol LAB 04/01/25 In Process 01:30 Urine Bacterial DOROTEO 04/01/25 In Process Culture 02:42 Blood Culture DOROTEO 04/01/25 Uncollected 02:44 Lipase LAB 04/01/25 In Process 01:30 * Dietary Consult CONS 04/01/25 Transmitted 02:44 Zosyn Extended PHA 04/01/25 Verified Infusion 03:00 Zosyn Extended PHA 04/01/25 Verified Infusion 06:00 Date of Service: Apr 01, 2025 Billing Provider: JOLANTA GARY MD Common Visit Codes: 73052-KCFNPSA INP/OBS CARE (HIGH) Secondary Visit Codes: 61351-IQXYLMHD CARE PLAN 30 MINUTES MEÑO POE RESIDENT Apr 01, 2025 03:01
[2025-04-01] MEDS: D5W/SOD CHLO 0.9% 1,000 ML IV SCH (03:15)
[2025-04-01 03:25] LABS: Albumin 3.9 g/dL (3.2-4.8); Bilirubin, Total 0.6 mg/dL (0.2-1.0); Lipase 13 U/L (12-53); Total Protein 5.9 g/dL (5.7-8.2)
[2025-04-01 04:10] LABS: Alanine Aminotransferase 136 U/L (7-40); Alkaline Phosphatase 174 U/L (46-116)
[2025-04-01] MEDS: PIPERACILLIN-TAZOB 2.25GM 50 ML IV ONE (04:13)
--- NOTE | 2025-04-01 04:23 | ECG ---
[facility] Test Date: 2025-04-01 Test Time: 04:21:44 Pat Name: GREGORY ROCKWELL Department: ED Room: [address] [place] [address] Gender: M Project Associate: EDWIN : 1965 Requested By: SARAH MARVIN Order Number: [id number] Reading MD: Measurements Intervals [place] Rate: 128 P: 0 MS: 0 QRS: 72 QRSD: 89 T: 256 QT: 325 QTc: 475 Interpretive Statements Atrial fibrillation Posterior infarct, acute (LCx) Baseline wander in lead(s) I,aVR Please click the below link to view image of tracing.
[2025-04-01 04:53] LABS: INR 1.11 (0.9-1.15); Partial Thromboplastin Time 32.9 SEC (24.5-34.5); Prothrombin Time 11.6 sec (9.3-11.8)
[2025-04-01 05:00] LABS: Bilirubin, Direct 0.3 mg/dL (<0.3)
[2025-04-01 05:28] LABS: Iron 44.0 ug/dL (65-175); Total Iron Binding Capacity 182.0 ug/dL (250-425)
[2025-04-01] MEDS: SODIUM CHLOR 0.9% PF (SALINE LOCK) 10ML VIAL/SYR IV SCH (06:19)
[2025-04-01] MEDS: ACCU-CHEK COMFORT CURVE STRIP VI SCH (06:19)
[2025-04-01] MEDS: POTASSIUM CHL 20MEQ/100ML 100 ML IV SCH (08:38)
[2025-04-01] MEDS ORDERED: PIPERACILLIN-TAZOB 3.375GM 100 ML IV SCH (09:00)
[2025-04-01] MEDS ORDERED: PANTOPRAZOLE 40 MG/10 ML VIAL INJ IV SCH (10:00)
[2025-04-01] MEDS ORDERED: ACCU-CHEK COMFORT CURVE STRIP VI SCH (10:00)
[2025-04-01] MEDS: cefTRIAXone 1GM/50ML D5W 50 ML IV ONE (10:12)
[2025-04-01] MEDS: PANTOPRAZOLE 40mg/50ML NS AE 50 ML IV SCH (10:12)
--- NOTE | 2025-04-01 13:38 | DVHDSRES ---
Discharge Summary Date of Admission Resident Creating Document: YOUNG HAN RESIDENT Apr 01, 2025 at 02:35 Date of Discharge: Apr 01, 2025 Admitting Diagnosis ALOC likely due to severe hypoglycemia Wounds: No apparent wounds present Labs/Diagnostic Data: Laboratory Results Test 04/01/25 08:51 04/01/25 03:32 04/01/25 01:30 04/01/25 01:20 POC Glucose 107 mg/dl (70-106) Troponin I High Sensitivity 7 ng/L (</=54) Total Bilirubin 0.6 mg/dL (0.2-1.0) Direct Bilirubin 0.3 mg/dL (<0.3) Aspartate Amino Transferase (AST) 39 U/L (13-40) Alanine Aminotransferase (ALT) 136 U/L (7-40) Alkaline Phosphatase 174 U/L (46-116) Total Protein 5.9 g/dL (5.7-8.2) Albumin 3.9 g/dL (3.2-4.8) Lipase 13 U/L (12-53) Plasma/Serum Blood Alcohol < 3.0 mg/dL (<10) Urine Color Light-yellow (Yellow) Urine Clarity Clear (Clear) Urine pH 5.0 (5.0-9.0) Urine Specific [place] 1.014 (1.001-1.035) Urine Protein Trace (Negative) Urine Ketones Negative (Negative) Urine Blood Trace /uL (Negative) Urine Nitrite Negative (Negative) Urine Bilirubin Negative (Negative) Urine Urobilinogen Normal mg/dL (Negative) Urine Leukocyte Esterase Negative /uL (Negative) Urine RBC None seen /hpf (0 - 3) Urine Microscopic WBC 1 /HPF (0-3) Urine Squamous Epithelial Cells None seen /hpf (<5) Urine Bacteria None seen /hpf (None Seen) Urine Yeast (Budding) Occasional /hpf (None Urine Glucose Normal mg/dL (Normal) Urine Opiates Screen Neg (NEGATIVE) Urine Fentanyl Screen Neg (NEGATIVE) Urine Barbiturates Screen Neg (NEGATIVE) Urine Phencyclidine Screen Neg (NEGATIVE) Urine Amphetamines Screen Neg (NEGATIVE) Urine Benzodiazepines Screen Neg (NEGATIVE) Urine Cocaine Screen Neg (NEGATIVE) Urine Cannabinoids Screen Pos (NEGATIVE) Test 04/01/25 00:36 White Blood Count 12.6 10^3/uL (4.4-10.8) Red Blood Count 1.94 10^6/uL (4.5-5.90) Hemoglobin 6.1 g/dL (13.5-17.5) Hematocrit 18.2 % (41.0-53.0) Mean Corpuscular Volume 93.8 fL (80.0-100.0) Mean Corpuscular Hemoglobin 31.6 pg (28.0-32.0) Mean Corpuscular Hemoglobin Concent 33.6 g/dL (32.0-36.0) Red Cell Distribution Width 13.3 % (11.8-14.3) Platelet Count 106 10^3/uL (140-450) Mean Platelet Volume 8.4 fL (6.9-10.8) Neutrophils (%) (Auto) 84.6 % (37.0-80.0) Lymphocytes (%) (Auto) 10.7 % (10.0-50.0) Monocytes (%) (Auto) 4.4 % (0.0-12.0) Eosinophils (%) (Auto) 0.1 % (0.0-7.0) Basophils (%) (Auto) 0.2 % (0.0-2.0) Neutrophils # (Auto) 10.6 10 ^3/uL (1.6-8.6) Lymphocytes # (Auto) 1.3 10 ^3/uL (0.4-5.4) Monocytes # (Auto) 0.6 10 ^3/uL (0-1.3) Eosinophils # (Auto) 0 10 ^3/uL (0-0.8) Basophils # (Auto) 0 10 ^3/uL (0-0.2) Nucleated Red Blood Cells 0.0 % Prothrombin Time 11.6 sec (9.3-11.8) Prothrombin Time INR 1.11 (0.9-1.15) Activated Partial Thromboplast Time 32.9 SEC (24.5-34.5) Sodium Level 141 mmol/L (136-145) Potassium Level 3.0 mmol/L (3.5-5.1) Chloride Level 106 mmol/L (98-107) Carbon Dioxide Level 26 mmol/L (20-31) Anion Gap 9 (5-15) Blood Urea Nitrogen 46 mg/dL (9-23) Creatinine 1.17 mg/dL (0.700-1.30) Glomerular Filtration Rate Calc 72 mL/min (>90) BUN/Creatinine Ratio 39.3 (10.0-20.0) Serum Glucose 50 mg/dL (74-106) Calcium Level 9.4 mg/dL (8.7-10.4) Magnesium Level 2.0 mg/dL (1.6-2.6) Iron Level 44 ug/dL (65-175) Total Iron Binding Capacity 182 ug/dL (250-425) Percent Iron Saturation 24.2 % (20-55) Ferritin 548.2 ng/mL (22-322) Thyroid Stimulating Hormone (TSH) 1.30 uIU/mL (0.55-4.78) Other Laboratory Tests 04/01/25 00:36 Brief Hx & Hospital Course: Patient is 59 years old male with a past medical history of diabetes mellitus type 2, polysubstance abuse, chronic pancreatitis was brought in by EMS due to altered mental status. As per ER documentation and history taking from the patient patient was found with altered mental status and decreased responsiveness at the scene. Patient's blood sugar at the scene was noted to have been in 20s. As per patient he got to the wrong dose of insulin that is why he got hypoglycemic and altered mental status. Patient also reported that he has been having black tarry colored stool lately for last 2 days and feeling tired for the same duration. Patient had recent hospital admission in March 2025 with the hypoglycemia. On 03/27/2025 CT chest revealed-Thin walled cavitary lesion left upper lobe 5.4 x 3.7 cm. Question due to granulomatous disease. On 03/27/2025 CT abdomen and pelvis revealed-Signs of chronic pancreatitis Left lower lobe infiltrate. There is also a small cavitary lesion in the left lower lung zone raising question of granulomatous disease. Urine culture on 03/25/2025 revealed Klebsiella pneumoniae. [facility] HIV 1 and 2 was negative. Pending Aspergilius and TB Gold test report. Upon admission, blood glucose was very low and hemoglobin was 6.1. We ordered two packs of red blood cells, and started the patient on D5W/NS 0.9%. Blood glucose started to correct and patient become more responsive but combative/aggressive and noncompliant with medical staff. GI was consulted for possible GI bleeding. Patient was stabilized but decided to leave AMA despite of extensive explanation of risks of leaving AMA and all the workup that we should do at this time. Patient decided to leave AMA. Consults/Reason for consult GI consulted for possible GI bleed Operations or Procedures CHEST RADIOGRAPH Indication: altered Technique: Single frontal view of the chest was obtained COMPARISON: XY CHEST PORTABLE on DOS: 03/25/25 FINDINGS: Lines and Tubes: None Lungs: No evidence of focal consolidation. Chronic appearing bilateral interstitial pulmonary markings. Pleura: No effusion. No pneumothorax. Cardiomediastinal contours: Unremarkable Bones: Unremarkable IMPRESSION: 1. No acute disease. Chronic appearing bilateral interstitial pulmonary markings. Condition at Discharge: Undetermined Final Diagnosis/Problems List Metabolic encephalopathy likely due to hypoglycemia/severe anemia Altered mental status Suspected sepsis likely due to pneumonia/UTI Recurrent Severe hypoglycemia Severe anemia likely due to GI bleeding Atrial fibrillation- patient with thrombocytopenia Diabetes mellitus type 2 Leukocytosis under evaluation Thrombocytopenia Hypokalemia Substance abuse History of chronic pancreatitis Protein calorie malnutrition Discharge Disposition: AMA Discharge Instruct/Medications Diet: Regular Scheduled Amlodipine Besylate (Amlodipine Besylate), 1 TAB PO DAILY, (Reported) Azithromycin (Azithromycin), 250 MG PO DAILY Naproxen (Naprosyn Tablet), 1 TAB PO BID Miscellaneous Medications Pancrelipase (Lipase-Protease- (Creon), PO, (Reported) Discharge Statement: "Patient was advised to return to the ER or call 911 if any headaches, dizziness, shortness of breath, chest pain, abdominal pain, bleeding, fevers, or worsening of medical condition. Patient was counseled about treatment plan, medications, possible side effects, patientverbalized understanding. All questions were answered to the best of my ability. This discharge took greater then 30 minutes in planning, reviewing documentation, counseling the patient, and discussing with other team members." ASSESSMENT ASSESSMENT Assessment YOUNG HAN RESIDENT Apr 01, 2025 13:38
[2025-04-02] MEDS ORDERED: cefTRIAXone 1GM/50ML D5W 50 ML IV SCH (09:00)
== END 2025-04-01 10:53 | disposition left against medical advice (07) | DRG 720 ==
LOC: EDBD 23:58 → ER 23:58 → OVERFLOW 04-01 02:35 → ICU WEST 04-01 02:36
PROVIDERS: ADMIT Student in an Organized Health Care Education/Training Program; ATTEND Internal Medicine
DX: A41.9 Sepsis, unspecified organism (principal); G93.41 Metabolic encephalopathy; J18.9 Pneumonia, unspecified organism; E46 Unspecified protein-calorie malnutrition; E11.649 Type 2 diabetes mellitus with hypoglycemia without coma; D69.6 Thrombocytopenia, unspecified; D62 Acute posthemorrhagic anemia; K92.2 Gastrointestinal hemorrhage, unspecified; I95.9 Hypotension, unspecified; D64.9 Anemia, unspecified; F19.10 Other psychoactive substance abuse, uncomplicated; Z53.29 Procedure and treatment not carried out because of patient's decision for other reasons; I48.91 Unspecified atrial fibrillation; F17.210 Nicotine dependence, cigarettes, uncomplicated; E87.6 Hypokalemia; K86.1 Other chronic pancreatitis; N39.0 Urinary tract infection, site not specified; Z68.1 Body mass index [BMI] 19.9 or less, adult; Z79.4 Long term (current) use of insulin
CPT/HCPCS: 36415; 36430; 71045; 80048; 80076; 80307; 80320; 81001; 82728; 82962; 83540; 83550; 83690; 83735; 84443; 84484; 85025; 85610; 85730; 86850; 86900; 86901; 86920; 87081; 87086; 93005; 96365; 96375; 99291; G0378; J2470; J2543; J3480

== ENCOUNTER 2025-04-04 10:27 | Emergency (ER) | payer OTHER ==
[~2025-04-04] VITALS: Ht 162.6 cm; Wt 54.4 kg
--- NOTE | 2025-04-04 10:34 | ED.PDOC ---
History of Present Illness HPI Comments 59 year old male with a Hx of DM and Marijuana use was BIBA for the c/c of Hypoglycemia. Per EMS pt was here at [facility] 2x weeks ago but was discharged. But has now returned because his Blood Sugar was 35. Pt is appears to be malnourished, is drooling. No other associated symptoms, modifiers, recent injuries or sick contacts present at this time. Time Seen by MD: 10:31 Reviewed Notes: Nurses Notes, Carbon Coating Machine Operator Notes, Medications, Allergies Allergies: Coded Allergies: No Known Drug Allergy (Verified Allergy, Unknown, 03/25/25) Home Meds Active Scripts Naproxen (NAPROSYN TABLET) 500 Mg Tb, 1 TAB PO BID for 10 Days, #20 TAB 1 Refill Prov:CARRIONISAMAR Dorado Johnny DO 03/30/25 Azithromycin (Azithromycin) 250 Mg Tab, 250 MG PO DAILY MDD 500 for 5 Days, #6 TAB 0 Refills 2 TABLETS ORALLY ON DAY ONE, THEN 1 TABLET ORALLY DAILY FOR 4 DAYS Prov:ISAMAR CARRION DO 03/30/25 Reported Medications Amlodipine Besylate (Amlodipine Besylate) 10 Mg Tab, 1 TAB PO DAILY 03/27/25 Pancrelipase (Lipase-Protease- (Creon) 6,000 Unit Cap, PO 03/27/25 Information Source: Patient, Emergency Med Personnel Mode of Arrival: EMS Severity: Moderate Timing: Hours Duration: Since onset, Hours Prehospital treatment: Treatment Past Medical History PAST MEDICAL HISTORY: DM, UTI'S Surgical History: Unknown Family History Family History: Reviewed,noncontributory to illness Social History Smoker: Cigarettes Alcohol: Occasionally Drugs: Marijuana Lives In: Home Constitutional: denies: chills, diaphoresis, fatigue, fever, malaise, sweats, weakness, others EENTM: denies: blurred vision, double vision, ear bleeding, ear discharge, ear drainage, ear pain, ear ringing, eye pain, eye redness, hearing loss, mouth pain, mouth swelling, nasal discharge, nose bleeding, nose congestion, nose pain, photophobia, tearing, throat pain, throat swelling, voice changes, others Respiratory: denies: cough, hemoptysis, orthopnea, SOB at rest, shortness of breath, SOB with excertion, stridor, wheezing, others Cardiovascular: denies: chest pain, dizzy spells, diaphoresis, Dyspnea on exertion, edema, irregular heart beat, left arm pain, lightheadedness, palpitations, PND, syncope, others Gastrointestinal: denies: abdomen distended, abdominal pain, blood streaked bowels, constipated, diarrhea, dysphagia, difficulty swallowing, hematemesis, melena, nausea, poor appetite, poor fluid intake, rectal bleeding, rectal pain, vomiting, others Genitourinary: denies: burning, dysuria, flank pain, frequency, hematuria, incontinence, penile discharge, penile sore, pain, testicle pain, testicle swelling, urgency, others Neurological: denies: dizziness, fainting, headache, left sided numbness, left sided weakness, numbness, paresthesia, pre-existing deficit, right sided numbness, right sided weakness, seizure, speech problems, tingling, tremors, weakness, others Musculoskeletal: denies: back pain, gout, joint pain, joint swelling, muscle pain, muscle stiffness, neck pain, others Integumetry: denies: bruises, change in color, change in hair/nails, dryness, laceration, lesions, lumps, rash, wounds, others Allergic/Immunocompromised: denies: Difficulty Healing, Frequent Infections, Hives, Itching, others Hematologic/Lymphatic: denies: anemia, blood clots, easy bleeding, easy bruising, swollen glands, others Endocrine: denies: excessive hunger, excessive sweating, excessive thirst, excessive urination, flushing, intolerance to cold, intolerance to heat, unexplained weight gain, unexplained weight loss, others Psychiatric: denies: anxiety, bipolar disorder, depression, hopeless, panic disorder, schizophrenia, sleepless, suicidal, others All Other Systems: Reviewed and Negative Physical Exam General Appearance: Moderate Distress, Thin HEENT: Normal ENT Inspection, Pharynx Normal, TMs Normal Neck: Full Range of Motion, Non-Tender, Normal, Normal Inspection Respiratory: Chest Non-Tender, Lungs Clear, No Accessory Muscle Use, No Respi ratory Distress, Normal Breath Sounds Cardiovascular: No Edema, No JVD, No Murmur, No Gallop, Normal Peripheral Pulses, Regular Rate/Rhythm Breast Exam: Deferred Gastrointestinal: No Organomegaly, Non Tender, No Pulsatile Mass, Normal Bowel Sounds, Soft Genitalia: Deferred Pelvic: Deferred Rectal: Deferred Extremities: No calf tenderness, Normal capillary refill, Normal inspection, Normal range of motion, Non-tender, No pedal edema Musculoskeletal : Apperance: Normal Neurologic: Alert, snuff maker II-XII nml as Tested, No Motor Deficits, Normal Affect, Normal Mood, No Sensory Deficits Cerebellar Function: NOT DONE Reflexes: None Skin: Dry, Normal Color, Warm Peripheral Pulses: 3+ Radial (R), 3+ Radial (L) Lymphatic: No Adenopathy Was a procedure done? Was a procedure done?: Yes Sedation Sedation?: No Central Line Recorder of insertion practice: Observer Occupation of operations program manager: Attending Physician Indication: Inability to obtain IV Room prepared for procedure: Yes Content Management Specialist performed hand hygien: Yes Maximal sterile barrier precau: Mask/Eye shield, Sterile gown, Cap, Sterlie gloves, Large sterlie drape Skin Preparation: Chlorhexidine gluconate Skin preparation completely dr: Yes Insertion site: Right, Internal jugular Central line catheter type: [id number] dialysis Number of lumens: 2 Central line exchanged over a: Yes Antiseptic ointment applied to: Yes Post Assessment: Chest X-Ray, Proper placement, No Pneumothorax Informed consent obtained: No Risks/benefits/alt described: No Differential Dx Considerations may include: Failure to thrive Electrolyte imbalance X-Ray, Labs, Meds, VS Vital Signs Date Time Temp Pulse Resp B/P (MAP) Pulse Ox O2 Delivery O2 Flow Rate FiO2 04/04/25 14:03 57 14 149/83 (105) 04/04/25 11:00 Room Air* 0 21 04/04/25 11:00 96.0 58 11 128/84 (99) 99 96.0 04/04/25 10:50 98.9 46 14 188/88 (121) 100 98.9 Lab Test 04/04/25 11:47 Range/Units White Blood Count 15.7 H 4.4-10.8 10^3/uL Red Blood Count 2.38 L 4.5-5.90 10^6/uL Hemoglobin 7.5 #L 13.5-17.5 g/dL Hematocrit 22.8 #L 41.0-53.0 % Mean Corpuscular Volume 95.7 80.0-100.0 fL Mean Corpuscular Hemoglobin 31.6 28.0-32.0 pg Mean Corpuscular Hemoglobin Concent 33.0 32.0-36.0 g/dL Red Cell Distribution Width 14.0 11.8-14.3 % Platelet Count 122 L 140-450 10^3/uL Mean Platelet Volume 7.7 6.9-10.8 fL Neutrophils (%) (Auto) 88.9 H 37.0-80.0 % Lymphocytes (%) (Auto) 7.3 L 10.0-50.0 % Monocytes (%) (Auto) 3.5 0.0-12.0 % Eosinophils (%) (Auto) 0.0 0.0-7.0 % Basophils (%) (Auto) 0.3 0.0-2.0 % Neutrophils # (Auto) 13.9 H 1.6-8.6 10 ^3/uL Lymphocytes # (Auto) 1.1 0.4-5.4 10 ^3/uL Monocytes # (Auto) 0.5 0-1.3 10 ^3/uL Eosinophils # (Auto) 0 0-0.8 10 ^3/uL Basophils # (Auto) 0.1 0-0.2 10 ^3/uL Nucleated Red Blood Cells 0.0 % Prothrombin Time 12.7 H 9.3-11.8 sec Prothrombin Time INR 1.22 H 0.9-1.15 Activated Partial Thromboplast Time 31.3 24.5-34.5 SEC Sodium Level 143 136-145 mmol/L Potassium Level 3.5 3.5-5.1 mmol/L Chloride Level 110 H 98-107 mmol/L Carbon Dioxide Level 23 20-31 mmol/L Anion Gap 10 5-15 Blood Urea Nitrogen 22 9-23 mg/dL Creatinine 1.12 0.700-1.30 mg/dL Glomerular Filtration Rate Calc 76 >90 mL/min BUN/Creatinine Ratio 19.6 10.0-20.0 Serum Glucose 92 74-106 mg/dL Lactic Acid Level 1.5 0.4-2.0 mmol/L Calcium Level 10.0 8.7-10.4 mg/dL Total Bilirubin 0.5 0.2-1.0 mg/dL Aspartate Amino Transferase (AST) 79 H 13-40 U/L Alanine Aminotransferase (ALT) 121 H 7-40 U/L Alkaline Phosphatase 252 H 46-116 U/L Total Protein 5.9 5.7-8.2 g/dL Albumin 3.7 3.2-4.8 g/dL Current Medications Medications (Trade) Dose Ordered Sig/Paulette Route Start Time Stop Time Status Last Admin Vancomycin HCl 200 ml @ 200 mls/hr ONCE ONCE IV 04/04/25 10:45 04/04/25 11:44 DC 04/04/25 11:50 Sodium Chloride 1,000 ml @ 1,000 mls/hr Q1H ONCE IV 04/04/25 10:45 04/04/25 11:44 DC 04/04/25 10:45 Dextrose 50 ml ONCE ONCE IV 04/04/25 11:00 04/04/25 11:01 DC 04/04/25 11:09 OB: 1965 LOC: ER ROOM / BED: / AGE / SEX: 59 / M ADM STATUS: REG ER SERVICE 1054 ORDERING PHYSICIAN: MEGAN ADAM MD PROCEDURE(s): CXRP - CHEST PORTABLE REASON: sob ORDER NUMBER(s): [id number], ACCESSION NUMBER(s): [id number] EXAM: XY CHEST PORTABLE HISTORY: sob COMPARISON: XY CHEST PORTABLE on DOS: 04/01/25, XY CHEST PORTABLE on DOS: 03/25/25, CT chest dated 03/27/2025. TECHNIQUE: Portable AP view of the chest was performed. FINDINGS: There is a new right IJ central line with its tip in the lower SVC. No pneumothorax, new infiltrates, or pulmonary edema. Emphysematous changes are better characterized on prior CT scan. The heart is not enlarged. IMPRESSION: 1. New right IJ central line in good position without pneumothorax. 2. Emphysema. Patient alert. Vitals stable. He is thin. Establish intravenous access. Was given fluids. Failure to thrive. Liver profile elevated. Possible sepsis. WBC he is elevated. Sepsis protocol. Time of 1ST Reevaluation: 11:01 Reevaluation 1ST: Unchanged Patient Education/Counseling: Diagnosis, Treatment, Need For Follow Up Family Education/Counseling: No Family Present SEPSIS Sepsis Screen Physician Orders Urinalysis (04/04/25 10:37) Chest Portable (04/04/25 10:54) Accucheck (04/04/25 10:37) Blood Culture (04/04/25 10:37) Notify Md If Map <65 Or Bp<90 (04/04/25 10:37) If Map<65 Start Vasopressor (04/04/25 10:37) Vital Signs Date Time Temp Pulse Resp B/P (MAP) Pulse Ox O2 Delivery O2 Flow Rate FiO2 04/04/25 14:03 57 14 149/83 (105) 04/04/25 11:00 Room Air* 0 21 04/04/25 11:00 96.0 58 11 128/84 (99) 99 96.0 04/04/25 10:50 98.9 46 14 188/88 (121) 100 98.9 Laboratory Tests Test 04/04/25 11:47 Lactic Acid Level 1.5 mmol/L (0.4-2.0) White Blood Count 15.7 10^3/uL (4.4-10.8) H Medications Medications Dose Ordered Sig/Paulette Route Start Time Stop Time Status Last Admin Dose Admin Dextrose 50 ml ONCE ONCE IV 04/04/25 11:00 04/04/25 11:01 DC 04/04/25 11:09 Sodium Chloride 1,000 ml @ 1,000 mls/hr Q1H ONCE IV 04/04/25 10:45 04/04/25 11:44 DC 04/04/25 10:45 Vancomycin HCl 200 ml @ 200 mls/hr ONCE ONCE IV 04/04/25 10:45 04/04/25 11:44 DC 04/04/25 11:50 Departure 1 Departure Time of Disposition: 13:31 Impression: Primary Impression: Sepsis, unspecified organism Qualified Codes: A41.9 - Sepsis, unspecified organism Disposition: ADMITTED INPATIENT Admit to: Med Surg Condition: Guarded Critical Care Note Critical Care Time?: Yes (90 min-critical care time only) Critical care comment: Sepsis protocol Stability Stability form required: No Heart Score Heart Score: Heart Score Response (Comments) Value History Slightly Suspicious 0 EKG Normal 0 Age 45-64 1 Risk Factors >3 or Hx ASHD 2 Troponin Normal limit 0 Total 3 I personally scribed for MEGAN ADAM MD ([email or web address]) on 04/04/25 at 10:34. Electronically submitted by Deep Johnston ([email or web address]). I personally scribed for MEGAN ADAM MD ([email or web address]) on 04/04/25 at 11:00. Electronically submitted by Deep Johnston ([email or web address]). I personally scribed for MEGAN ADAM MD ([email or web address]) on 04/04/25 at 11:41. Electronically submitted by Deep Johnston ([email or web address]). MEGAN ADAM MD Apr 04, 2025 10:34
[2025-04-04] MEDS: DEXTROSE 50% SYRINGE 50 ML IV ONE (10:35)
[2025-04-04] MEDS: SODIUM CHLORIDE 0.9% 1,000 ML IV ONE ×2 (10:45)
[2025-04-04 11:00] VITALS: TEMP 96
[2025-04-04] MEDS: DEXTROSE (50%) 50ML SYRG IV ONE (11:09)
--- NOTE | 2025-04-04 11:28 | DVH ---
EXAM: XY CHEST PORTABLE HISTORY: sob COMPARISON: XY CHEST PORTABLE on DOS: 04/01/25, XY CHEST PORTABLE on DOS: 03/25/25, CT chest dated 03/27. TECHNIQUE: Portable AP view of the chest was performed. FINDINGS: There is a new right IJ central line with its tip in the lower SVC. No pneumothorax, new infiltrates, or pulmonary edema. Emphysematous changes are better characterized on prior CT scan. The heart is no t enlarged. IMPRESSION: 1. New right IJ central line in good position without pneumothorax. 2. Emphysema.
[2025-04-04] MEDS: VANCOMYCIN 1GM/200ML PM 200 ML IV ONE (11:50)
[2025-04-04 12:04] LABS: Hematocrit 22.8 % (41.0-53.0); Hemoglobin 7.5 g/dL (13.5-17.5); Mean Corpuscular Hemoglobin 31.6 pg (28.0-32.0); Mean Corpuscular Volume 95.7 fL (80.0-100.0); Nucleated Red Blood Cells % 0.0 %
[2025-04-04 12:17] LABS: INR 1.22 (0.9-1.15); Partial Thromboplastin Time 31.3 SEC (24.5-34.5); Prothrombin Time 12.7 sec (9.3-11.8)
[2025-04-04 12:19] LABS: Alanine Aminotransferase 121 U/L (7-40); Albumin 3.7 g/dL (3.2-4.8); Alkaline Phosphatase 252 U/L (46-116); Anion Gap 10 (5-15); BUN/Creatinine Ratio 19.6 (10.0-20.0); Blood Urea Nitrogen 22 mg/dL (9-23); Calcium 10.0 mg/dL (8.7-10.4); Carbon Dioxide 23 mmol/L (20-31); Chloride 110 mmol/L (98-107); Glucose 92 mg/dL (74-106); Potassium 3.5 mmol/L (3.5-5.1); Sodium 143 mmol/L (136-145); Total Protein 5.9 g/dL (5.7-8.2)
[2025-04-04 12:28] LABS: Bilirubin, Total 0.5 mg/dL (0.2-1.0)
[2025-04-04] MEDS ORDERED: D5W 5% 1,000 ML IV ONE (14:00)
[2025-04-04] MEDS ORDERED: CEFEPIME 1GM/ 50ML 50 ML IV SCH (14:00)
[2025-04-04 15:00] VITALS: BP 149/83; PULSE 66; RESP 13; O2SAT 96
== END 2025-04-04 16:22 | disposition left against medical advice (07) ==
LOC: ER 10:27 → EDUNIT# 10:27 → EDBD 10:27 → ER 16:22
DX: A41.9 Sepsis, unspecified organism (principal); F17.210 Nicotine dependence, cigarettes, uncomplicated; E11.9 Type 2 diabetes mellitus without complications; F12.90 Cannabis use, unspecified, uncomplicated; F10.90 Alcohol use, unspecified, uncomplicated; Z79.899 Other long term (current) drug therapy; Z87.440 Personal history of urinary (tract) infections; Y90.9 Presence of alcohol in blood, level not specified
CPT/HCPCS: 36415; 36556; 71045; 80053; 82947; 83605; 85025; 85610; 85730; 87040; 96361; 96365; 96375; 99291; 99292; J3370; J7030; J7042

== ENCOUNTER 2025-04-04 19:06 | Emergency (ER) | payer OTHER ==
[~2025-04-04] VITALS: Ht 160 cm; Wt 54.4 kg
[2025-04-04 19:23] VITALS: TEMP 98.2
[2025-04-04 19:25] VITALS: BP 149/95; PULSE 66; RESP 11; O2SAT 100
--- NOTE | 2025-04-04 19:35 | ED.PDOC ---
History of Present Illness HPI Comments This is a 59 year old male ENE presenting to the ED with chief complaint of hypoglycemia. EMS reports patient had been previously seen today for hypoglycemia, however, patient signed out AMA due to not being allowed to eat. EMS relays that the patient left and later fell, hitting the right side of hit face and now has a hematoma over lateral aspect of the right eyebrow. No blood loss. EMS states they were called for the patient and an accucheck noted a blood glucose level of 22. Patient notes that he is not altered and agrees to stay in the ED if he is able to eat. Patient is A/O x4. Patient denies any further symptoms at this time. Chief Complaint: Hypoglycemia Time Seen by MD: 19:30 Primary Care Provider: UNKNOWN Reviewed Notes: Nurses Notes, Extracorporeal Circulation Specialist Notes, Medications, Allergies Allergies: Coded Allergies: No Known Drug Allergy (Verified Allergy, Unknown, 03/25/25) Home Meds Active Scripts Naproxen (NAPROSYN TABLET) 500 Mg Tb, 1 TAB PO BID for 10 Days, #20 TAB 1 Refill Prov:ISAMAR CARRION DO 03/30/25 Azithromycin (Azithromycin) 250 Mg Tab, 250 MG PO DAILY MDD 500 for 5 Days, #6 TAB 0 Refills 2 TABLETS ORALLY ON DAY ONE, THEN 1 TABLET ORALLY DAILY FOR 4 DAYS Prov:ISAMAR CARRION DO 03/30/25 Reported Medications Amlodipine Besylate (Amlodipine Besylate) 10 Mg Tab, 1 TAB PO DAILY 03/27/25 Pancrelipase (Lipase-Protease- (Creon) 6,000 Unit Cap, PO 03/27/25 Information Source: Patient, Emergency Med Personnel Mode of Arrival: EMS Severity: Severe Timing: Hours Duration: Since onset Prehospital treatment: Accucheck Past Medical History PAST MEDICAL HISTORY: DM, UTI'S Surgical History: Unknown Family History Family History: Reviewed,noncontributory to illness Social History Smoker: Cigarettes Alcohol: Occasionally Drugs: Marijuana Lives In: Home Constitutional: reports: fatigue, weakness; denies: chills, diaphoresis, fever, malaise, sweats, others EENTM: denies: blurred vision, double vision, ear bleeding, ear discharge, ear drainage, ear pain, ear ringing, eye pain, eye redness, hearing loss, mouth pain, mouth swelling, nasal discharge, nose bleeding, nose congestion, nose pain, photophobia, tearing, throat pain, throat swelling, voice changes, others Respiratory: denies: cough, hemoptysis, orthopnea, SOB at rest, shortness of breath, SOB with excertion, stridor, wheezing, others Cardiovascular: denies: chest pain, dizzy spells, diaphoresis, Dyspnea on exertion, edema, irregular heart beat, left arm pain, lightheadedness, pa lpitations, PND, syncope, others Gastrointestinal: denies: abdomen distended, abdominal pain, blood streaked bowels, constipated, diarrhea, dysphagia, difficulty swallowing, hematemesis, melena, nausea, poor appetite, poor fluid intake, rectal bleeding, rectal pain, vomiting, others Genitourinary: denies: burning, dysuria, flank pain, frequency, hematuria, incontinence, penile discharge, penile sore, pain, testicle pain, testicle swelling, urgency, others Neurological: denies: dizziness, fainting, headache, left sided numbness, left sided weakness, numbness, paresthesia, pre-existing deficit, right sided numbness, right sided weakness, seizure, speech problems, tingling, tremors, weakness, others Musculoskeletal: denies: back pain, gout, joint pain, joint swelling, muscle pain, muscle stiffness, neck pain, others Integumetry: reports: others (Hematoma to right face); denies: bruises, change in color, change in hair/nails, dryness, laceration, lesions, lumps, rash, wounds Allergic/Immunocompromised: denies: Difficulty Healing, Frequent Infections, Hives, Itching, others Hematologic/Lymphatic: denies: anemia, blood clots, easy bleeding, easy bruising, swollen glands, others Endocrine: denies: excessive hunger, excessive sweating, excessive thirst, excessive urination, flushing, intolerance to cold, intolerance to heat, unexplained weight gain, unexplained weight loss, others Psychiatric: denies: anxiety, bipolar disorder, depression, hopeless, panic disorder, schizophrenia, sleepless, suicidal, others All Other Systems: Reviewed and Negative Physical Exam General Appearance: Mild Distress (Patient was only in moderate distress due to pain related to his lateral facial hematoma. Patient did not want to be in the facility and stated he wanted to leave AMA. I was able to discuss the need for the patient to stay for a variety of reasons. Patient agreed to stay if he would receive food.), Normal HEENT: Head (Patient displays a walnut sized hematoma to the lateral aspect of the in his right eyebrow. Mild ecchymosis noted. No change in vision. No skull depressions or deformities.), Normal ENT Inspection, Pharynx Normal, TMs Normal Neck: Full Range of Motion, Non-Tender, Normal, Normal Inspection Respiratory: Chest Non-Tender, Lungs Clear, No Accessory Muscle Use, No Respiratory Distress, Normal Breath Sounds Cardiovascular: No Edema, No JVD, No Murmur, No Gallop, Normal Peripheral Pulses, Regular Rate/Rhythm Breast Exam: Deferred Gastrointestinal: No Organomegaly, Non Tender, No Pulsatile Mass, Normal Bowel Sounds, Soft Genitalia: Deferred Pelvic: Deferred Rectal: Deferred Extremities: Calf tenderness, Leg edema, Normal capillary refill, No pedal edema Neurologic: Alert, No Motor Deficits, No Sensory Deficits Cerebellar Function: NOT DONE Reflexes: NOT DONE Skin: Dry, Normal Color, Warm Lymphatic: No Adenopathy Was a procedure done? Was a procedure done?: No Differential Dx Considerations may include: Sepsis, cellulitis, electrolyte abnormality, acute CHF exacerbation, anemia, subarachnoid hemorrhage, skull fracture X-Ray, Labs, Meds, VS Vital Signs Date Time Temp Pulse Resp B/P (MAP) Pulse Ox O2 Delivery O2 Flow Rate FiO2 04/04/25 19:25 66 11 149/95 (113) 100 04/04/25 19:23 98.2 62 18 134/84 (101) 100 98.2 Lab Test 04/04/25 19:39 Range/Units White Blood Count 12.9 H 4.4-10.8 10^3/uL Red Blood Count 2.31 L 4.5-5.90 10^6/uL Hemoglobin 7.2 L 13.5-17.5 g/dL Hematocrit 21.6 L 41.0-53.0 % Mean Corpuscular Volume 93.7 80.0-100.0 fL Mean Corpuscular Hemoglobin 31.2 28.0-32.0 pg Mean Corpuscular Hemoglobin Concent 33.2 32.0-36.0 g/dL Red Cell Distribution Width 14.0 11.8-14.3 % Platelet Count 131 L 140-450 10^3/uL Mean Platelet Volume 7.4 6.9-10.8 fL Neutrophils (%) (Auto) 87.7 H 37.0-80.0 % Lymphocytes (%) (Auto) 7.1 L 10.0-50.0 % Monocytes (%) (Auto) 5.1 0.0-12.0 % Eosinophils (%) (Auto) 0.0 0.0-7.0 % Basophils (%) (Auto) 0.1 0.0-2.0 % Neutrophils # (Auto) 11.3 H 1.6-8.6 10 ^3/uL Lymphocytes # (Auto) 0.9 0.4-5.4 10 ^3/uL Monocytes # (Auto) 0.7 0-1.3 10 ^3/uL Eosinophils # (Auto) 0 0-0.8 10 ^3/uL Basophils # (Auto) 0 0-0.2 10 ^3/uL Nucleated Red Blood Cells 0.0 % Sodium Level 146 H 136-145 mmol/L Potassium Level 3.0 L 3.5-5.1 mmol/L Chloride Level 111 H 98-107 mmol/L Carbon Dioxide Level 25 20-31 mmol/L Anion Gap 10 5-15 Blood Urea Nitrogen 25 H 9-23 mg/dL Creatinine 1.07 0.700-1.30 mg/dL Glomerular Filtration Rate Calc 80 >90 mL/min BUN/Creatinine Ratio 23.4 H 10.0-20.0 Serum Glucose 193 #H 74-106 mg/dL Calcium Level 9.5 8.7-10.4 mg/dL Total Bilirubin 0.6 0.2-1.0 mg/dL Aspartate Amino Transferase (AST) 80 H 13-40 U/L Alanine Aminotransferase (ALT) 121 H 7-40 U/L Alkaline Phosphatase 243 H 46-116 U/L Troponin I High Sensitivity 21 </=54 ng/L B-Type Natriuretic Peptide 367.23 0-100 pg/mL Total Protein 5.5 L 5.7-8.2 g/dL Albumin 3.5 3.2-4.8 g/dL Current Medications Medications (Trade) Dose Ordered Sig/Paulette Route Start Time Stop Time Status Last Admin Dextrose 50 ml ONCE ONCE IV 04/04/25 19:45 04/04/25 19:46 DC 04/04/25 19:43 X-Ray, Labs, Meds, VS Comment Patient continued to be belligerent while at the facility. We attempted to secure food for the patient thinking that that would allow him to calm down and be treated, but the patient insisted that he wanted to leave the facility and was willing to sign an AMA form. I spent extensive time discussing the need for the patient to stated that facility due to life-threatening conditions. Patient states he understood but was going back to his senior living facility. Patient signed an AMA form prior to leaving the campus. Patient denied any SI or HI. Patient was able to ambulate on his own. Time of 1ST Reevaluation: 20:26 Reevaluation 1ST: Unchanged Consultation: PCP Patient Education/Counseling: Diagnosis, Treatment Family Education/Counseling: Diagnosis, Treatment, No Family Present SEPSIS Sepsis Screen Recent Procedure: No On Antibiotic Therapy: No Respiratory Rate >20: No Heart Rate >90: No Temp<36 C (96.8 F) or >38.3 C: No SBP <90 or MAP <65 mmHG: No New Acute Mental Status Change: No Is the patient on CPAP, BIPAP,: No Physician Orders Urinalysis (04/04/25 19:28) Electrocardigram (04/04/25 19:28) Troponin-I Hs (04/04/25 20:28) Troponin-I Hs (04/04/25 22:28) Maxillofacial Without (04/04/25 19:28) Heplock Iv (04/04/25 ) Vital Signs Date Time Temp Pulse Resp B/P (MAP) Pulse Ox O2 Delivery O2 Flow Rate FiO2 04/04/25 19:25 66 11 149/95 (113) 100 04/04/25 19:23 98.2 62 18 134/84 (101) 100 98.2 Laboratory Tests Test 04/04/25 19:39 White Blood Count 12.9 10^3/uL (4.4-10.8) H Medications Medications Dose Ordered Sig/Paulette Route Start Time Stop Time Status Last Admin Dose Admin Dextrose 50 ml ONCE ONCE IV 04/04/25 19:45 04/04/25 19:46 DC 04/04/25 19:43 Departure 1 Departure Time of Disposition: 20:26 Impression: Primary Impression: Head trauma Disposition: LEFT AGAINST MEDICAL ADVICE Condition: Fair Discharged With: Self Critical Care Note Critical Care Time?: No Stability Stability form required: No Heart Score Heart Score: Heart Score Response (Comments) Value History N/A 0 EKG N/A 0 Age N/A 0 Risk Factors N/A 0 Troponin N/A 0 Total 0 I personally scribed for JO-ANN FLORES PAC ([email or web address]) on 04/04/25 at 19:35. Electronically submitted by Kevin Ramirez ([email or web address]). JO-ANN FLORES PAC Apr 04, 2025 19:35
[2025-04-04] MEDS: DEXTROSE (50%) 50ML SYRG IV ONE (19:43)
[2025-04-04] MEDS: DEXTROSE 50% SYRINGE 50 ML IV ONE (19:43)
[2025-04-04 19:49] LABS: Hematocrit 21.6 % (41.0-53.0); Hemoglobin 7.2 g/dL (13.5-17.5); Mean Corpuscular Hemoglobin 31.2 pg (28.0-32.0); Mean Corpuscular Volume 93.7 fL (80.0-100.0); Nucleated Red Blood Cells % 0.0 %
[2025-04-04 20:06] LABS: Albumin 3.5 g/dL (3.2-4.8); Anion Gap 10 (5-15); BUN/Creatinine Ratio 23.4 (10.0-20.0); Bilirubin, Total 0.6 mg/dL (0.2-1.0); Calcium 9.5 mg/dL (8.7-10.4); Carbon Dioxide 25 mmol/L (20-31)
[2025-04-04 20:08] LABS: Alanine Aminotransferase 121 U/L (7-40); Alkaline Phosphatase 243 U/L (46-116); Blood Urea Nitrogen 25 mg/dL (9-23); Chloride 111 mmol/L (98-107); Glucose 193 mg/dL (74-106); Potassium 3.0 mmol/L (3.5-5.1); Sodium 146 mmol/L (136-145); Total Protein 5.5 g/dL (5.7-8.2)
== END 2025-04-04 20:30 | disposition left against medical advice (07) ==
LOC: EDBD 19:06 → ER 19:08
DX: S09.8XXA Other specified injuries of head, initial encounter (principal); F17.210 Nicotine dependence, cigarettes, uncomplicated; F10.90 Alcohol use, unspecified, uncomplicated; F12.90 Cannabis use, unspecified, uncomplicated; E11.649 Type 2 diabetes mellitus with hypoglycemia without coma; Z87.440 Personal history of urinary (tract) infections; Z79.899 Other long term (current) drug therapy; W19.XXXA Unspecified fall, initial encounter; Y93.89 Activity, other specified; Y92.89 Other specified places as the place of occurrence of the external cause; Y99.8 Other external cause status; Y90.9 Presence of alcohol in blood, level not specified
CPT/HCPCS: 36415; 80053; 82947; 83880; 84484; 85025; 96374; 99283; J7042

== ENCOUNTER 2025-04-04 23:40 | Emergency (ER) | payer OTHER ==
[~2025-04-04] VITALS: Ht 170.2 cm; Wt 44.0 kg
[2025-04-05 00:23] VITALS: BP 157/109; PULSE 60; RESP 16; TEMP 97.8; O2SAT 100
--- NOTE | 2025-04-05 02:18 | DVH ---
CLINICAL HISTORY: s/p + LOC TECHNIQUE: Helical imaging carried out from skull base to vertex without intravenous contrast. This e xam was performed according to our departmental dose optimization program. Up-to-date CT equipment an d radiation dose reduction techniques are utilized as appropriate. CTDIVol: 63.12 mGy DLP: 1364.34 mGy-cm WID: COMPARISON: None FINDINGS: Mild cerebral volume loss with concordant prominence of the subarachnoid spaces and ventricles. Mild patchy low attenuation in the cerebral white matter consistent with nonspecific white matter disease. There is no midline shift or mass effect. The soni white matter interfaces are maintained. The basal cisterns are patent. There is no evidence of acute intracranial hemorrhage or extra-axial fluid huber ection. The mastoid air cells and visualized paranasal sinuses are well-aerated. Moderate right periorbital and temporal scalp contusion / hematoma. IMPRESSION: No acute intracranial abnormality. Moderate-sized right periorbital and temporal scalp contusion / hematoma. Mild cerebral volume loss and mild chronic microvascular ischemic change.
--- NOTE | 2025-04-05 02:19 | DVH ---
CLINICAL INDICATION: s/p fall elbow pain TECHNIQUE: XY L ELBOW 3 VIEW XRAY Comparison: None FINDINGS/IMPRESSION: : There is no evidence of acute fracture or dislocation. Soft tissues are unremarkable.
--- NOTE | 2025-04-05 02:26 | DVH ---
CLINICAL HISTORY: s/p fall neck pain TECHNIQUE: CT exam of the cervical spine was performed without intravenous contrast. This exam was pe rformed according to our departmental dose optimization program. Up-to-date CT equipment and radiatio n dose reduction techniques are utilized as appropriate. CTDI: 9.85+ 0.48 DLP: 63.53 WID: COMPARISON: None FINDINGS: Straightening of the cervical lordosis. The vertebral body heights are maintained. No acute cervical fracture or subluxation is identified. Multilevel degenerative disc disease and osteophyte formation of the cervical spine. There is multilevel facet and uncovertebral hypertrophy resulting in multilev el moderate to marked neural foraminal stenosis, up to severe on the right at C6-C7. There is multile emma disc osteophyte complexes resulting in multilevel spinal stenosis up to moderate at C6-C7. The po sterior paraspinous soft tissues are unremarkable. There is mild centrilobular emphysema in the lung apices. Hypodensity of the blood pool is evident. This is likely due to anemia. IMPRESSION: No acute fracture or traumatic malalignment. Multilevel moderate to marked neural foraminal stenosis, up to severe on the right at C6-C7. Multilevel degenerative spinal stenosis up to moderate at C6-C7. There appears to be hypodensity of the blood pool. Correlate with CBC for anemia. Mild centrilobular emphysema.
--- NOTE | 2025-04-05 02:28 | DVH ---
EXAM: CT MAXILLOFACIAL WITHOUT CLINICAL HISTORY: s/p fall right eye edema TECHNIQUE: Multiple contiguous axial images were obtained of the facial bones without intravenous con trast. Sagittal and coronal reformations were obtained. This exam was performed according to our depa rtmental dose optimization program. Up-to-date CT equipment and radiation dose reduction techniques a re utilized as appropriate. Comparison: None FINDINGS: There is a moderate contusion / hematoma in the lateral right periorbital soft tissues. The mastoid a ir cells and visualized paranasal sinuses are well-aerated aside from a mucous retention cyst or poly p in the left maxillary sinus. The globes and orbits are normal in appearance without CT evidence of orbital hemorrhage. The extraocular muscles are intact. No facial, mandibular, or orbital wall fractu re is identified. The temporomandibular joints are maintained. Moderate right TMJ arthrosis. Multiple dental caries and periapical lucencies most pronounced in the maxillary teeth. Scattered mandibular and maxillary teeth have been removed. IMPRESSION: No evidence of acute facial fracture or orbital hemorrhage. Moderate contusion/ hematoma in the lateral right periorbital soft tissues. Multiple dental caries and periapical lucencies most pronounced in the maxillary teeth. Moderate right TMJ arthrosis.
--- NOTE | 2025-04-05 03:46 | ED.PDOC ---
Oz. trauma (HPI) HPI Comments Pt presents to the ER due to left arm pain S/P fall. Pt is a poor historian and resistive to answer questions apporpriately. Pt recently seen today at this facility for hypoglycemia and AMA'd due to "not feeding him." Pt states he walked outside and fell, pt complaint of lft arm pain. CSM and ROM intact. Pt A/O x4, VSS. Patient denies chest pain, difficulty breathing, shortness of breath, dizziness, slurred speech, numbness or weakness. Chief Complaint: Fall Injury Time Seen by MD: 23:49 Primary Care Provider: n/a Reviewed notes: Nurses Notes, Medications, Allergies Allergies: Coded Allergies: No Known Drug Allergy (Verified Allergy, Unknown, 03/25/25) Home Meds Active Scripts Naproxen (NAPROSYN TABLET) 500 Mg Tb, 1 TAB PO BID for 10 Days, #20 TAB 1 Refill Prov:ISAMAR CARRION Johnny DO 03/30/25 Azithromycin (Azithromycin) 250 Mg Tab, 250 MG PO DAILY MDD 500 for 5 Days, #6 TAB 0 Refills 2 TABLETS ORALLY ON DAY ONE, THEN 1 TABLET ORALLY DAILY FOR 4 DAYS Prov:NICK CARRIONMY Johnny DO 03/30/25 Reported Medications Amlodipine Besylate (Amlodipine Besylate) 10 Mg Tab, 1 TAB PO DAILY 03/27/25 Pancrelipase (Lipase-Protease- (Creon) 6,000 Unit Cap, PO 03/27/25 Information Source: Patient Mode of Arrival: Wheelchair Past Medical History PAST MEDICAL HISTORY: DM, UTI'S Surgical History: Unknown Family History Family History: Reviewed,noncontributory to illness Social History Smoker: Cigarettes Alcohol: Occasionally Drugs: Marijuana Lives In: Home Constitutional: denies: chills, diaphoresis, fatigue, fever, malaise, sweats, weakness, others EENTM: denies: blurred vision, double vision, ear bleeding, ear discharge, ear drainage, ear pain, ear ringing, eye pain, eye redness, hearing loss, mouth pain, mouth swelling, nasal discharge, nose bleeding, nose congestion, nose pain, photophobia, tearing, throat pain, throat swelling, voice changes, others Respiratory: denies: cough, hemoptysis, orthopnea, SOB at rest, shortness of breath, SOB with excertion, stridor, wheezing, others Cardiovascular: denies: chest pain, dizzy spells, diaphoresis, Dyspnea on exertion, edema, irregular heart beat, left arm pain, lightheadedness, palpitations, PND, syncope, others Gastrointestinal: denies: abdomen distended, abdominal pain, blood streaked bowels, constipated, diarrhea, dysphagia, difficulty swallowing, hematemesis, melena, nausea, poor appetite, poor fluid intake, rectal bleeding, rectal pain, vomiting, others Genitourinary: denies: burning, dysuria, flank pain, frequency, hematuria, incontinence, penile discharge, penile sore, pain, testicle pain, testicle swelling, urgency, others Neurological: reports: headache; denies: dizziness, fainting, left sided numbness, left sided weakness, numbness, paresthesia, pre-existing deficit, right sided numbness, right sided weakness, seizure, speech problems, tingling, tremors, weakness, others Musculoskeletal: reports: joint pain; denies: back pain, gout, joint swelling, muscle pain, muscle stiffness, neck pain, others Integumetry: reports: bruises; denies: change in color, change in hair/nails, dryness, laceration, lesions, lumps, rash, wounds, others Allergic/Immunocompromised: denies: Difficulty Healing, Frequent Infections, Hives, Itching, others Hematologic/Lymphatic: reports: anemia, easy bleeding; denies: blood clots, easy bruising, swollen glands, others Endocrine: denies: excessive hunger, excessive sweating, excessive thirst, excessive urination, flushing, intolerance to cold, intolerance to heat, unexpla ined weight gain, unexplained weight loss, others Psychiatric: denies: anxiety, bipolar disorder, depression, hopeless, panic disorder, schizophrenia, sleepless, suicidal, others Physical Exam General Appearance: No Apparent Distress, Normal HEENT: Normal ENT Inspection, Pharynx Normal, TMs Normal Neck: Limited Range of Motion, Tender Lateral Respiratory: Chest Non-Tender, Decreased Breath Sounds, No Respiratory Distress Cardiovascular: No Edema, No JVD, No Murmur, No Gallop, Normal Peripheral Pulses, Regular Rate/Rhythm Breast Exam: Deferred Gastrointestinal: No Organomegaly, Non Tender, No Pulsatile Mass, Normal Bowel Sounds, Soft Genitalia: Deferred Pelvic: Deferred Rectal: Deferred Extremities: No calf tenderness, Normal capillary refill, Normal inspection, Normal range of motion, Non-tender, No pedal edema Musculoskeletal : Location: Left Extremity Location: Elbow (Moderate tenderness on palpation trace edema no noted ecchymosis, abrasions or lacerations strength sensory motion intact. ) Apperance: Normal Neurologic: Alert, No Motor Deficits, Normal Affect, Normal Mood, No Sensory Deficits Cerebellar Function: Normal Reflexes: Normal Skin: Bruises (Orbital ecchymosis and edema right eye), Dry, Normal Color, Warm Lymphatic: No Adenopathy Was a procedure done? Was a procedure done?: No Differential Diagnosis Multiple Trauma: Closed Head Injury, Fractures, Spine Injury Neck Injury: Cervical Muscle Spasm, Cervical Sprain, Cervical Strain, Cervical Fracture X-Ray, Labs, Meds, VS Vital Signs Date Time Temp Pulse Resp B/P (MAP) Pulse Ox O2 Delivery O2 Flow Rate FiO2 04/05/25 00:23 97.8 60 16 157/109 (125) 100 97.8 Lab Test 04/05/25 03:58 04/05/25 00:19 Range/Units White Blood Count 16.4 #H 4.4-10.8 10^3/uL Red Blood Count 2.43 L 4.5-5.90 10^6/uL Hemoglobin 7.6 L 13.5-17.5 g/dL Hematocrit 22.8 L 41.0-53.0 % Mean Corpuscular Volume 93.6 80.0-100.0 fL Mean Corpuscular Hemoglobin 31.2 28.0-32.0 pg Mean Corpuscular Hemoglobin Concent 33.3 32.0-36.0 g/dL Red Cell Distribution Width 14.0 11.8-14.3 % Platelet Count 136 L 140-450 10^3/uL Mean Platelet Volume 8.2 6.9-10.8 fL Neutrophils (%) (Auto) 88.4 H 37.0-80.0 % Lymphocytes (%) (Auto) 7.1 L 10.0-50.0 % Monocytes (%) (Auto) 4.4 0.0-12.0 % Eosinophils (%) (Auto) 0.0 0.0-7.0 % Basophils (%) (Auto) 0.1 0.0-2.0 % Neutrophils # (Auto) 14.5 H 1.6-8.6 10 ^3/uL Lymphocytes # (Auto) 1.2 0.4-5.4 10 ^3/uL Monocytes # (Auto) 0.7 0-1.3 10 ^3/uL Eosinophils # (Auto) 0 0-0.8 10 ^3/uL Basophils # (Auto) 0 0-0.2 10 ^3/uL Nucleated Red Blood Cells 0.0 % Sodium Level 141 # 136-145 mmol/L Potassium Level 3.1 L 3.5-5.1 mmol/L Chloride Level 107 98-107 mmol/L Carbon Dioxide Level 24 20-31 mmol/L Anion Gap 10 5-15 Blood Urea Nitrogen 23 9-23 mg/dL Creatinine 0.94 0.700-1.30 mg/dL Glomerular Filtration Rate Calc 94 >90 mL/min BUN/Creatinine Ratio 24.5 H 10.0-20.0 Serum Glucose 70 #L 74-106 mg/dL Lactic Acid Level 2.4 *H 0.4-2.0 mmol/L Calcium Level 9.1 8.7-10.4 mg/dL Total Bilirubin 0.7 0.2-1.0 mg/dL Aspartate Amino Transferase (AST) 86 H 13-40 U/L Alanine Aminotransferase (ALT) 130 H 7-40 U/L Alkaline Phosphatase 247 H 46-116 U/L Total Protein 6.2 5.7-8.2 g/dL Albumin 3.7 3.2-4.8 g/dL Lipase 17 12-53 U/L POC Glucose 146 H 70-106 mg/dl X-Ray, Labs, Meds, VS Comment Elevated lactic acid 2.4, pending CBC, we will bolus 1 L and repeat lactic acid. Potassium 3.1. 50 mEq given p.o. Patient placed for hospitalist for anemia hyperkalemia, head trauma, possible sepsis pending repeat lactic acid Time of 1ST Reevaluation: 23:49 Reevaluation 1ST: Unchanged Time of 2ND Reevaluation: 04:45 Reevaluation 2ND: Unchanged Patient Education/Counseling: Diagnosis, Treatment, Prognosis, Need For Follow Up Family Education/Counseling: No Family Present Departure 1 Departure Time of Disposition: 03:55 Impression: Primary Impression: Anemia Qualified Codes: D64.9 - Anemia, unspecified Additional Impressions: Head trauma Qualified Codes: S09.90XA - Unspecified injury of head, initial encounter Hypokalemia Disposition: ADMITTED INPATIENT Condition: Stable Discharged With: Self Critical Care Note Critical Care Time?: No Stability Stability form required: MATA Bautista Apr 05, 2025 03:46
[2025-04-05 04:33] LABS: Albumin 3.7 g/dL (3.2-4.8); Alkaline Phosphatase 247 U/L (46-116); Anion Gap 10 (5-15); BUN/Creatinine Ratio 24.5 (10.0-20.0); Blood Urea Nitrogen 23 mg/dL (9-23); Calcium 9.1 mg/dL (8.7-10.4); Carbon Dioxide 24 mmol/L (20-31); Chloride 107 mmol/L (98-107); Glucose 70 mg/dL (74-106); Lipase 17 U/L (12-53); Potassium 3.1 mmol/L (3.5-5.1); Sodium 141 mmol/L (136-145); Total Protein 6.2 g/dL (5.7-8.2)
[2025-04-05 04:34] LABS: Alanine Aminotransferase 130 U/L (7-40); Bilirubin, Total 0.7 mg/dL (0.2-1.0)
[2025-04-05 04:35] LABS: Lactic Acid w/Reflex 2.4 mmol/L (0.4-2.0)
--- NOTE | 2025-04-05 04:42 | DVH ---
EXAM: XY CHEST TWO VIEWS ROUTINE HISTORY: sob COMPARISON: Chest x-ray dated 04/04/2025, CT scan of the chest dated 03/27/2025. TECHNIQUE: Frontal and lateral views of the chest were performed. FINDINGS: No pneumothorax, pulmonary edema, pleural effusions, or new infiltrates. Left mid lung cavitary lesio n is better characterized on prior CT scan. The heart is not enlarged. Emphysematous changes are bett er characterized on prior CT scan. No fractures are identified about the bony thorax. There is modera te thoracic degenerative disc disease. IMPRESSION: 1. Mid lung cavitary lesion re-identified, better characterized on CT scan dated 03/27/2025. 2. Emphysema.
[2025-04-05] MEDS ORDERED: SODIUM CHLORIDE 0.9% 1,000 ML IV ONE (05:00)
[2025-04-05] MEDS ORDERED: POTASSIUM EFFERVESENT TAB 25 MEQ PO ONE (05:00)
[2025-04-05 05:32] LABS: Mean Corpuscular Hemoglobin 31.2 pg (28.0-32.0); Nucleated Red Blood Cells % 0.0 %
[2025-04-05 05:34] LABS: Hematocrit 22.8 % (41.0-53.0); Hemoglobin 7.6 g/dL (13.5-17.5); Mean Corpuscular Volume 93.6 fL (80.0-100.0)
== END 2025-04-05 09:43 | disposition left against medical advice (07) ==
LOC: ER 23:40
DX: S09.8XXA Other specified injuries of head, initial encounter (principal); D64.9 Anemia, unspecified; E87.6 Hypokalemia; F17.210 Nicotine dependence, cigarettes, uncomplicated; F10.90 Alcohol use, unspecified, uncomplicated; F12.90 Cannabis use, unspecified, uncomplicated; E11.649 Type 2 diabetes mellitus with hypoglycemia without coma; Z87.440 Personal history of urinary (tract) infections; Z79.899 Other long term (current) drug therapy; W19.XXXA Unspecified fall, initial encounter; Y93.89 Activity, other specified; Y92.89 Other specified places as the place of occurrence of the external cause; Y99.8 Other external cause status; Y90.9 Presence of alcohol in blood, level not specified
CPT/HCPCS: 36415; 70450; 70486; 71046; 72125; 73080; 80053; 82947; 82962; 83605; 83690